=== PATIENT | female | born 1960 | race Caucasian/White ===

== ENCOUNTER 2021-02-28 17:30 | Emergency (ER) | payer MEDICAID ==
--- NOTE | 2021-02-28 17:53 | EDM.PDOC ---
<Chris Winston - Last Filed: 02/28/21 21:05> ED HPI GENERAL MEDICAL PROBLEM - General Stated Complaint: INFECTION ON BACK Time Seen by Provider: 02/28/21 17:35 - Related Data Allergies Allergy/AdvReac Type Severity Reaction Status Date / Time No Known Allergies Allergy Verified 02/28/21 17:56 Home Meds: Home Meds . [No Known Home Meds] 02/28/21 [History] Course - Re-Assessments/Exams Free Text/Narrative Re-Assessment/Exam: 02/28/21 19:30 Patient care was taken over at shift change. CT results with addendum were re viewed. The patient was advised of these results and the need for a surgical consult. [facility] in [place] was called for a surgical consult awaiting return call from surgery. 02/28/21 19:42 Consult was Surgeon with [facility] resulted in suggesting either the patient be started on antibiotics or be hospitalized with antibiotics. The patient would like to be started on IV antibiotics here and be discharged to home with oral antibiotics to follow-up with her primary care facility. Departure - Departure Time of Disposition: 21:05 Disposition: Home, Self-Care 01 Condition: Fair Clinical Impression: Abscess of skin and subcutaneous tissue Qualifiers: Site of cutaneous abscess: other site Qualified Code(s): L02.818 - Cutaneous abscess of other sites - Discharge Information *PRESCRIPTION DRUG MONITORING PROGRAM REVIEWED*: No *COPY OF PRESCRIPTION DRUG MONITORING REPORT IN PATIENT LISA: No Instructions: Skin Abscess, [id number] Forms: ED Department Discharge Care Plan Goals: The patient was advised of the examination and consult results with a surgeon from [facility]. The patient was given an IV dose of Vancomycin, IV fluids and IV insulin during the visit. The patient elected to be discharged to home with oral antibiotics to follow-up with her primary care facility early this week. The patient was discharged with a script for Keflex (500 mg) #30 to take 1 by mouth 3 times per day for 10 days and Bactrim DS #20 to take 1 by mouth 2 times per day for 10 days. If the patient has any additional symptoms or concerns, the patient should either return to the emergency department or visit her primary care facility. <Ashia Qureshi - Last Filed: 03/01/21 07:21> ED HPI GENERAL MEDICAL PROBLEM - General Source of Information: Reports: Patient, RN, RN Notes Reviewed History Limitations: Reports: No Limitations - History of Present Illness INITIAL COMMENTS - FREE TEXT/NARRATIVE: Jessie is a 60 y/o female who presents to the ED via personal vehicle with complaints of redness and swelling to a lesion on her back. The patient reports noting a lesion on her back about one week ago. The redness, swelling, pain, and size of the lesion have significantly increase since that time. She denies a history of MRSA. She denies fever, shaking chills, palpitations, nausea, vomiting, or diarrhea. She has been taking Tylenol, Motrin and drinking alcohol, which have offered her little to no alleviation of her symptoms. Right Back Pain Score (Numeric/FACES): 8 ED ROS GENERAL - Review of Systems Review Of Systems: Comprehensive ROS is negative, except as noted in HPI. ED EXAM, SKIN/RASH Exam: See Below Exam Limited By: No Limitations General Appearance: Alert, No Apparent Distress Eye Exam: Bilateral Eye: EOMI, Normal Inspection, PERRL (3mm) Ears: Normal External Exam, Normal Canal, Hearing Grossly Normal, Normal TMs Nose: Normal Inspection, Normal Mucosa, No Blood Throat/Mouth: Normal Inspection, Normal Oropharynx, Normal Voice, No Airway Compromise Head: Atraumatic, Normocephalic Neck: Normal Inspection, Supple, Non-Tender, Full Range of Motion Respiratory/Chest: No Respiratory Distress, Lungs Clear, Normal Breath Sounds, No Accessory Muscle Use, Chest Non-Tender Cardiovascular: Normal Peripheral Pulses, Regular Rate, Rhythm, No Edema, No Gallop, No JVD, No Murmur, No Rub, Tachycardia Peripheral Pulses: 2+: Radial (L), Radial (R) GI/Abdominal: Normal Bowel Sounds, Soft, Non-Tender, No Distention, No Mass, Pelvis Stable Back Exam: Other (Large area of erythema with multiple abscesses noted to midline spine) Extremities: Normal Inspection, Normal Range of Motion, Non-Tender, No Pedal Edema, Normal Capillary Refill Neurological: Alert, Oriented, CN II-XII Intact, Normal Cognition, Normal Gait, No Motor/Sensory Deficits Psychiatric: Normal Affect, Normal Mood Skin: Warm, Dry, Intact, Normal Color, No Rash, Erythema, Increased Warmth Location, Skin: Back Characteristics: Erythematous Associated features: Warmth, Tenderness, Inflammation Course - Vital Signs Last Recorded V/S: Last Vital Signs Temp 98.3 F 02/28/21 20:46 Pulse 93 02/28/21 20:46 Resp 16 02/28/21 20:46 BP 150/91 H 02/28/21 20:46 Pulse Ox 99 02/28/21 20:46 - Orders/Labs/Meds Orders: Active Orders 24 hr Category Date Time Status CULTURE BLOOD [BC] Stat Lab 02/28/21 17:53 Received Labs: Laboratory Tests 02/28/21 02/28/21 02/28/21 Range/Units 17:53 17:53 17:53 WBC 12.2 H (5.0-10.0) 10^3/uL RBC 4.70 (4.2-5.4) 10^6/uL Hgb 14.1 (12.0-16.0) g/dL Hct 41.4 (37.0-47.0) % MCV 88.1 (80-100) fL MCH 30.0 (27.0-34.0) pg MCHC 34.1 (33.0-35.0) g/dL Plt Count 219 (150-450) 10^3/uL Neut % (Auto) 69.9 (42.2-75.2) % Lymph % (Auto) 18.6 L (20.5-50.1) % Steele % (Auto) 9.9 H (2-8) % Eos % (Auto) 1.3 (1.0-3.0) % Baso % (Auto) 0.3 (0.0-1.0) % Sodium 130 L (136-145) mmol/L Potassium 4.8 (3.5-5.1) mmol/L Chloride 94 L (98-107) mmol/L Carbon Dioxide 27 (21-32) mmol/L Anion Gap 13.8 H (7-13) mEq/L BUN 7 (7-18) mg/dL Creatinine 0.72 (0.55-1.02) mg/dL Est Cr Clr Drug Dosing 66.54 mL/min Estimated GFR (MDRD) > 60 BUN/Creatinine Ratio 9.7 (No establ ref range) Glucose 458 H* (70-99) mg/dL POC Glucose (70-99) mg/dL Lactic Acid 3.3 H* (0.4-2.0) mmol/L Calcium 8.4 L (8.5-10.1) mg/dL Total Bilirubin 0.8 (0.2-1.0) mg/dL AST 84 H (15-37) U/L ALT 74 H (14-59) U/L Alkaline Phosphatase 284 H (46-116) U/L C-Reactive Protein 7.8 H (0.0-0.9) mg/dL Total Protein 7.8 (6.4-8.2) g/dL Albumin 2.3 L (3.4-5.0) g/dL Globulin 5.5 Albumin/Globulin Ratio 0.42 Ketones 02/28/21 02/28/21 02/28/21 Range/Units 17:53 19:45 21:25 WBC (5.0-10.0) 10^3/uL RBC (4.2-5.4) 10^6/uL Hgb (12.0-16.0) g/dL Hct (37.0-47.0) % MCV (80-100) fL MCH (27.0-34.0) pg MCHC (33.0-35.0) g/dL Plt Count (150-450) 10^3/uL Neut % (Auto) (42.2-75.2) % Lymph % (Auto) (20.5-50.1) % Steele % (Auto) (2-8) % Eos % (Auto) (1.0-3.0) % Baso % (Auto) (0.0-1.0) % Sodium (136-145) mmol/L Potassium (3.5-5.1) mmol/L Chloride (98-107) mmol/L Carbon Dioxide (21-32) mmol/L Anion Gap (7-13) mEq/L BUN (7-18) mg/dL Creatinine (0.55-1.02) mg/dL Est Cr Clr Drug Dosing mL/min Estimated GFR (MDRD) BUN/Creatinine Ratio (No establ ref range) Glucose (70-99) mg/dL POC Glucose 296 H (70-99) mg/dL Lactic Acid 1.0 (0.4-2.0) mmol/L Calcium (8.5-10.1) mg/dL Total Bilirubin (0.2-1.0) mg/dL AST (15-37) U/L ALT (14-59) U/L Alkaline Phosphatase (46-116) U/L C-Reactive Protein (0.0-0.9) mg/dL Total Protein (6.4-8.2) g/dL Albumin (3.4-5.0) g/dL Globulin Albumin/Globulin Ratio Ketones Negative 02/28/21 Range/Units 21:30 WBC (5.0-10.0) 10^3/uL RBC (4.2-5.4) 10^6/uL Hgb (12.0-16.0) g/dL Hct (37.0-47.0) % MCV (80-100) fL MCH (27.0-34.0) pg MCHC (33.0-35.0) g/dL Plt Count (150-450) 10^3/uL Neut % (Auto) (42.2-75.2) % Lymph % (Auto) (20.5-50.1) % Steele % (Auto) (2-8) % Eos % (Auto) (1.0-3.0) % Baso % (Auto) (0.0-1.0) % Sodium (136-145) mmol/L Potassium (3.5-5.1) mmol/L Chloride (98-107) mmol/L Carbon Dioxide (21-32) mmol/L Anion Gap (7-13) mEq/L BUN (7-18) mg/dL Creatinine (0.55-1.02) mg/dL Est Cr Clr Drug Dosing mL/min Estimated GFR (MDRD) BUN/Creatinine Ratio (No establ ref range) Glucose (70-99) mg/dL POC Glucose 257 H (70-99) mg/dL Lactic Acid (0.4-2.0) mmol/L Calcium (8.5-10.1) mg/dL Total Bilirubin (0.2-1.0) mg/dL AST (15-37) U/L ALT (14-59) U/L Alkaline Phosphatase (46-116) U/L C-Reactive Protein (0.0-0.9) mg/dL Total Protein (6.4-8.2) g/dL Albumin (3.4-5.0) g/dL Globulin Albumin/Globulin Ratio Ketones Meds: Medications Discontinued Medications Generic Name Dose Route Start Last Admin Trade Name Elizabeth PRN Reason Stop Dose Admin Dextrose/Water 50 ml 02/28/21 18:56 50% Dextrose In Water 50 Ml Syringe IVPUSH Q15M PRN Hypoglycemia Glucagon 1 mg 02/28/21 18:56 Glucagon,Human Recombinant 1 Mg Vial IM Q15M PRN Hypoglycemia Sodium Chloride 1,000 mls @ 999 mls/hr 02/28/21 18:53 02/28/21 19:07 Normal Saline IV 02/28/21 19:53 999 mls/hr .BOLUS ONE Administration Vancomycin HCl 1 gm/ Sodium 250 mls @ 167 mls/hr 02/28/21 19:40 02/28/21 19:47 Chloride IV 02/28/21 21:09 167 mls/hr ONETIME ONE Administration Insulin Human Regular 5 unit 02/28/21 18:56 02/28/21 19:09 Insulin Regular, Human 100 Units/Ml 3 Ml Vial IV 02/28/21 18:57 5 units ONETIME ONE Administration Iopamidol 100 ml 02/28/21 18:16 02/28/21 18:55 Iopamidol 612 Mg/Ml 100 Ml Bottle IVPUSH 02/28/21 18:17 100 ml ONETIME ONE Administration Ketorolac Tromethamine 30 mg 02/28/21 18:57 02/28/21 19:11 Ketorolac 30 Mg/Ml Sdv IVPUSH 02/28/21 18:58 30 mg ONETIME ONE Administration Lidocaine HCl 30 ml 02/28/21 18:53 02/28/21 19:41 Lidocaine 1% 30 Ml Sdv INJECT 02/28/21 18:54 Not Given ONETIME ONE - Re-Assessments/Exams Free Text/Narrative Re-Assessment/Exam: 02/28/21 Care of patient transferred to Jules Winston PA-C at 1900. Sepsis Event Note (ED) - Focused Exam Vital Signs: Vital Signs Temp Pulse Resp BP Pulse Ox 02/28/21 20:46 98.3 F 93 16 150/91 H 99 - My Orders Last 24 Hours: My Active Orders 02/28/21 17:53 CULTURE BLOOD [BC] Stat - Assessment/Plan Last 24 Hours: My Active Orders 02/28/21 17:53 CULTURE BLOOD [BC] Stat
[2021-02-28] MEDS ORDERED: Iopamidol 612 MG/ML 100 ML Bottle IVPUSH ONE (18:16)
[2021-02-28 18:33] LABS: ANION GAP 13.8 mEq/L (7-13); CHLORIDE,CL 94 mmol/L (98-107); SODIUM,NA 130 mmol/L (136-145)
[2021-02-28] MEDS ORDERED: Sodium Chloride 0.9% 1,000 ML IV ONE (18:53)
--- NOTE | 2021-02-28 18:54 | CT ---
PROCEDURE INFORMATION: Exam: CT Thoracic Spine With Contrast Exam date and time: 02/28/2021 6:15 PM Age: 60 years old Clinical indication: Other: R/O abscess involvement of spine; Additional info: Large abscess overlying thoracic spine--going past right scapula TECHNIQUE: Imaging protocol: Computed tomography images of the thoracic spine with intravenous contrast. Radiation optimization: All CT scans at this facility use at least one of these dose optimization techniques: automated exposure control; mA and/or kV adjustment per patient size (includes targeted exams where dose is matched to clinical indication); or iterative reconstruction. Contrast material: [id number]; Contrast volume: 100 ml; Contrast route: INTRAVENOUS (IV); COMPARISON: No relevant prior studies available. FINDINGS: Vertebrae: [id number] grade degenerative changes are present within the thoracic spine with disc space narrowing, endplate sclerosis and endplate osteophyte formation. Thoracic vertebral body height is well maintained. A moderate convex right thoracic scoliosis is present. Zuniga angle near 20 degrees. IMPRESSION: Degenerative change and moderate convex right thoracic scoliosis. No acute compression fracture or subluxation present.
[2021-02-28] MEDS ORDERED: Glucagon,Human Recombinant 1 MG Vial IM PRN (18:56)
[2021-02-28] MEDS ORDERED: Insulin Regular, Human 100 Units/ML 3 ML Vial IV ONE (18:56)
[2021-02-28] MEDS ORDERED: 50% Dextrose in Water 50 ML Syringe IVPUSH PRN (18:56)
[2021-02-28] MEDS ORDERED: Ketorolac 30 MG/ML SDV IVPUSH ONE (18:57)
[2021-02-28] MEDS: Lidocaine 1% 30 ML SDV INJECT ONE ×2 (19:13→19:41)
== END 2021-02-28 21:27 | disposition home or self-care (01) ==
LOC: EEVIPCON 17:30 → DL.ED 17:30
DX: L02.212 Cutaneous abscess of back [any part, except buttock and flank] (principal)
CPT/HCPCS: 36415; 72129; 80053; 82009; 82947; 83605; 85025; 86140; 87040; 87077; 87186; 96365; 96366; 96375; 99284; 99284-25; J1815-GY; J1885; J3370; J7030; J7050; Q9967

== ENCOUNTER 2021-08-04 18:15 | Emergency (ER) | payer MEDICAID | END 2021-08-04 22:21 | disposition left against medical advice (07) | LOC: DL.ED 18:15 | DX: Z53.21 Procedure and treatment not carried out due to patient leaving prior to being seen by health care provider (principal) ==

== ENCOUNTER 2021-08-09 15:51 | Inpatient (IN) | payer MEDICAID ==
[2021-08-09] MEDS ORDERED: Sodium Chloride 0.9% 10 ML Syringe FLUSH PRN ×2 (16:13→18:47)
--- NOTE | 2021-08-09 16:37 | CR ---
EXAMINATION: Chest 1V Frontal SEX: Female AGE: 61 years CLINICAL HISTORY: 61-year-old female smoker with ascites who is short of breath (SOB). No comparison films immediately available. Interpretation: Blunting of the costophrenic sulci and patchy lower lobe atelectasis reflecting poor inspiratory effort. Possible small dependent subpulmonic pleural effusion particularly on the right. Normal cardiac silhouette and size and configuration). No pulmonary vascular congestion, cephalization of flow or alveolar edema. No lung mass or hilar lymphadenopathy. Old healed fracture deformity lateral aspect right fifth rib. Dorsolumbar scoliosis. No alveolar infiltrate, air bronchograms or peripheral "groundglass" interstitial lung densities. CONCLUSION: Old trauma right chest and apparent small subpulmonic pleural effusions. No sign of heart failure lung mass or lobar infiltrate. No pneumothorax.
[2021-08-09 16:51] LABS: ANION GAP 10.1 mEq/L (7-13); CHLORIDE,CL 93 mmol/L (98-107); SODIUM,NA 124 mmol/L (136-145)
[2021-08-09 16:56] LABS: PTT,PARTIAL THROMBOPLSTIN TIME 27.5 SEC (22.0-34.0)
[2021-08-09] MEDS ORDERED: HYDROmorphone 1 MG/ML Syringe IVPUSH ONE (17:17)
[2021-08-09] MEDS ORDERED: Ondansetron 4 MG/2 ML SDV IV ONE (17:17)
--- NOTE | 2021-08-09 17:41 | EDM.PDOC ---
Scribed by Earnestine Melendrez 08/09/21 [id number] for Erik Flores MD ED HPI GENERAL MEDICAL PROBLEM - General Chief Complaint: Gastrointestinal Problem Stated Complaint: AMBULANCE Time Seen by Provider: 08/09/21 15:51 Source of Information: Reports: Patient, EMS, EMS Notes Reviewed, RN, RN Notes Reviewed History Limitations: Reports: No Limitations - History of Present Illness INITIAL COMMENTS - FREE TEXT/NARRATIVE: Pt arrives to ER by [facility] with c/o several months of abdomen progressively getting larger and larger, edema of the lower legs, shortness of breath, and jaundice. Pt reports being diagnosed with Hep C many years ago, but she never had any symptoms and did not follow up. Pt admits to drinks whisky & coke every day for the last 7 years. She smokes about 5 cigarettes daily. Admits nausea. Admits to 35lbs of unintended wt loss over the last 6 months. Denies fever, cough, chest pain, vomiting, bloody/black/melanotic stools. Onset: Gradual Duration: Other (Several months) Location: Reports: Abdomen, Generalized Quality: Reports: Ache Severity: Mild Improves with: Reports: None Worsens with: Reports: None Associated Symptoms: Reports: No Other Symptoms Generalized Pain Score (Numeric/FACES): 10 - Related Data Allergies Allergy/AdvReac Type Severity Reaction Status Date / Time No Known Allergies Allergy Verified 02/28/21 17:56 Home Meds: Home Meds . [No Known Home Meds] 02/28/21 [History] Past Medical History - Past Health History Medical/Surgical History: Denies Medical/Surgical History HEENT History: Reports: None Cardiovascular History: Reports: None Respiratory History: Reports: None Gastrointestinal History: Reports: Hepatitis (Hep C.) Genitourinary History: Reports: None [employer] History: Reports: None Musculoskeletal History: Reports: None Neurological History: Reports: None Psychiatric History: Reports: Addiction (Alcohol) Endocrine/Metabolic History: Reports: None Hematologic History: Reports: None Immunologic History: Reports: None Oncologic (Cancer) History: Reports: None Dermatologic History: Reports: None - Infectious Disease History Infectious Disease History: Reports: Hepatitis C - Past Surgical History Head Surgeries/Procedures: Reports: None Social & Family History - Family History Family Medical History: Unobtainable - Tobacco Use Tobacco Use Status *Q: Current Every Day Tobacco User Tobacco Use Within Last Twelve Months: Cigarettes - Caffeine Use Caffeine Use: Reports: Coffee - Alcohol Use Alcohol Use History: Yes Days Per Week of Alcohol Use: 7 (7 years of daily use.) Alcohol Use Frequency: Daily - Recreational Drug Use Recreational Drug Use: No - Living Situation & Occupation Living situation: Reports: with Significant Other ED ROS GENERAL - Review of Systems Review Of Systems: Comprehensive ROS is negative, except as noted in HPI. ED EXAM, GENERAL - Physical Exam Exam: See Below Exam Limited By: No Limitations General Appearance: Alert, No Apparent Distress, Other (Chronically ill appearing) Eye Exam: Bilateral Eye: EOMI, PERRL, Other (Scleral icterus) Nose: Normal Inspection, No Blood Throat/Mouth: Normal Lips, Normal Voice, No Airway Compromise, Other (Very dry oral mucosa) Head: Atraumatic, Normocephalic Neck: Normal Inspection, Supple, Non-Tender, Full Range of Motion. No: Lymphadenopathy (L), Lymphadenopathy (R) Respiratory/Chest: No Respiratory Distress, Lungs Clear, No Accessory Muscle Use, Decreased Breath Sounds Cardiovascular: Regular Rate, Rhythm, Other (+2 pitting edema to knees B/L) GI/Abdominal: Tender (Mild diffuse tenderness), Other (Protruberant abdomen with large ascites, +fluid wave). No: Guarding, Rigid, Rebound (Female) Exam: Deferred Rectal (Female) Exam: Deferred Back Exam: Normal Inspection Extremities: Normal Range of Motion, Pedal Edema. No: Increased Warmth, Redness Neurological: Alert, Oriented, CN II-XII Intact, Normal Cognition, No Motor/Sensory Deficits Psychiatric: Anxious Skin Exam: Warm, Dry, Jaundice Course - Vital Signs Last Recorded V/S: Last Vital Signs Temp 98.1 F 08/09/21 16:13 Pulse 108 H 08/09/21 16:13 Resp 32 H 08/09/21 16:13 BP 150/93 H 08/09/21 16:13 Pulse Ox 95 08/09/21 16:13 - Orders/Labs/Meds Orders: Active Orders 24 hr Category Date Time Status Peripheral IV Care [RC] . DIRECTED Care 08/09/21 16:13 Active DRUG SCREEN URINE BIORAD [URCHEM] Stat Lab 08/09/21 16:12 Ordered UA RFX RADHA AND CULT IF INDIC [URIN] Stat Lab 08/09/21 16:12 Ordered Sodium Chloride 0.9% [Saline Flush] Med 08/09/21 16:13 Active 10 ml FLUSH ASDIRECTED PRN Peripheral IV Insertion Adult [OM.PC] Stat Oth 08/09/21 16:12 Ordered Medication Orders Sodium Chloride (Sodium Chloride 0.9% 10 Ml Syringe) 10 ml FLUSH ASDIRECTED PRN PRN Reason: Keep Vein Open Last Admin: 08/09/21 17:35 Dose: 10 ml Documented by: ARAMIS Labs: Laboratory Tests 08/09/21 08/09/21 08/09/21 Range/Units 15:54 16:09 16:09 WBC 10.3 H (5.0-10.0) 10^3/uL RBC 3.86 L (4.2-5.4) 10^6/uL Hgb 12.0 D (12.0-16.0) g/dL Hct 34.3 L (37.0-47.0) % MCV 88.9 (80-100) fL MCH 31.1 (27.0-34.0) pg MCHC 35.0 (33.0-35.0) g/dL Plt Count 241 (150-450) 10^3/uL Neut % (Auto) 81.9 H (42.2-75.2) % Lymph % (Auto) 9.5 L (20.5-50.1) % Warrick % (Auto) 6.8 (2-8) % Eos % (Auto) 1.5 (1.0-3.0) % Baso % (Auto) 0.3 (0.0-1.0) % Add Manual Diff Yes Neutrophils % (Manual) 73 (42-75) % Band Neutrophils % 8 % Lymphocytes % (Manual) 15 L (20-50) % Monocytes % (Manual) 4 (2-8) % PT (9.0-12.0) SEC INR (0.9-1.2) APTT (22.0-34.0) SEC Sodium 124 L (136-145) mmol/L Potassium 5.1 (3.5-5.1) mmol/L Chloride 93 L (98-107) mmol/L Carbon Dioxide 26 (21-32) mmol/L Anion Gap 10.1 (7-13) mEq/L BUN 18 (7-18) mg/dL Creatinine 0.75 (0.55-1.02) mg/dL Est Cr Clr Drug Dosing 63.09 mL/min Estimated GFR (MDRD) > 60 BUN/Creatinine Ratio 24.0 (No establ ref range) Glucose 219 H (70-99) mg/dL Lactic Acid (0.4-2.0) mmol/L Calcium 7.8 L (8.5-10.1) mg/dL Total Bilirubin 9.8 H (0.2-1.0) mg/dL AST 380 H (15-37) U/L ALT 315 H (14-59) U/L Alkaline Phosphatase 764 H (46-116) U/L Ammonia (11-32) umol/L Lactate Dehydrogenase 367 H (81-234) U/L Troponin I High Sens 6 (<=51) pg/mL B-Natriuretic Peptide 70 (0-100) pg/ml Total Protein 7.8 (6.4-8.2) g/dL Albumin 0.9 L (3.4-5.0) g/dL Globulin 6.9 Albumin/Globulin Ratio 0.13 Amylase 30 (25-115) U/L Lipase 171 (73-393) U/L Ethyl Alcohol < 3 (0) mg/dL SARS-CoV-2 RNA (RODNEY) Negative (NEGATIVE) 08/09/21 08/09/21 08/09/21 Range/Units 16:09 16:09 16:09 WBC (5.0-10.0) 10^3/uL RBC (4.2-5.4) 10^6/uL Hgb (12.0-16.0) g/dL Hct (37.0-47.0) % MCV (80-100) fL MCH (27.0-34.0) pg MCHC (33.0-35.0) g/dL Plt Count (150-450) 10^3/uL Neut % (Auto) (42.2-75.2) % Lymph % (Auto) (20.5-50.1) % Warrick % (Auto) (2-8) % Eos % (Auto) (1.0-3.0) % Baso % (Auto) (0.0-1.0) % Add Manual Diff Neutrophils % (Manual) (42-75) % Band Neutrophils % % Lymphocytes % (Manual) (20-50) % Monocytes % (Manual) (2-8) % PT 15.9 H (9.0-12.0) SEC INR 1.6 H (0.9-1.2) APTT 27.5 (22.0-34.0) SEC Sodium (136-145) mmol/L Potassium (3.5-5.1) mmol/L Chloride (98-107) mmol/L Carbon Dioxide (21-32) mmol/L Anion Gap (7-13) mEq/L BUN (7-18) mg/dL Creatinine (0.55-1.02) mg/dL Est Cr Clr Drug Dosing mL/min Estimated GFR (MDRD) BUN/Creatinine Ratio (No establ ref range) Glucose (70-99) mg/dL Lactic Acid 1.7 (0.4-2.0) mmol/L Calcium (8.5-10.1) mg/dL Total Bilirubin (0.2-1.0) mg/dL AST (15-37) U/L ALT (14-59) U/L Alkaline Phosphatase (46-116) U/L Ammonia 62 H (11-32) umol/L Lactate Dehydrogenase (81-234) U/L Troponin I High Sens (<=51) pg/mL B-Natriuretic Peptide (0-100) pg/ml Total Protein (6.4-8.2) g/dL Albumin (3.4-5.0) g/dL Globulin Albumin/Globulin Ratio Amylase (25-115) U/L Lipase (73-393) U/L Ethyl Alcohol (0) mg/dL SARS-CoV-2 RNA (RODNEY) (NEGATIVE) Meds: Medications Generic Name Dose Route Start Last Admin Trade Name Freman PRN Reason Stop Dose Admin Sodium Chloride 10 ml 08/09/21 16:13 08/09/21 17:35 Sodium Chloride 0.9% 10 Ml Syringe FLUSH 10 ml ASDIRECTED PRN Administration Keep Vein Open Discontinued Medications Generic Name Dose Route Start Last Admin Trade Name Freq PRN Reason Stop Dose Admin Hydromorphone HCl 1 mg 08/09/21 17:17 08/09/21 17:35 Hydromorphone 1 Mg/Ml Syringe IVPUSH 08/09/21 17:18 1 mg ONETIME ONE Administration Ondansetron HCl 4 mg 08/09/21 17:17 08/09/21 17:34 Ondansetron 4 Mg/2 Ml Sdv IV 08/09/21 17:18 4 mg ONETIME ONE Administration - Radiology Interpretation Free Text/Narrative:: XR Chest: old trauma Rt chest, small subpulmonic pleural effusion per Rad. report. - Re-Assessments/Exams Free Text/Narrative Re-Assessment/Exam: 08/09/21 17:38 No beds available state wide to transfer the pt to. Pt does not meet transplant criteria at this time. Pt to be admitted here to Dr. Chamberlain, and is on transfer waiting list with [facility]. Departure - Departure Time of Disposition: 17:39 (admit to Dr. Chamberlain) Disposition: Admitted As Inpatient 67 Condition: Serious Clinical Impression: Alcoholic liver disease, Ascites due to alcoholic hepatitis, History of hepatitis C Liver failure Qualifiers: Liver failure chronicity: chronic Hepatic coma status: without hepatic coma Qualified Code(s): K72.10 - Chronic hepatic failure without coma - Discharge Information *PRESCRIPTION DRUG MONITORING PROGRAM REVIEWED*: Not Applicable *COPY OF PRESCRIPTION DRUG MONITORING REPORT IN PATIENT LISA: Not Applicable Forms: ED Department Discharge Sepsis Event Note (ED) - Focused Exam Vital Signs: Vital Signs Temp Pulse Resp BP Pulse Ox 08/09/21 16:13 98.1 F 108 H 32 H 150/93 H 95 - My Orders Last 24 Hours: My Active Orders 08/09/21 16:12 DRUG SCREEN URINE BIORAD [URCHEM] Stat UA RFX RADHA AND CULT IF INDIC [URIN] Stat Peripheral IV Insertion Adult [OM.PC] Stat 08/09/21 16:13 Peripheral IV Care [RC] . DIRECTED Sodium Chloride 0.9% [Saline Flush] 10 ml FLUSH ASDIRECTED PRN - Assessment/Plan Last 24 Hours: My Active Orders 08/09/21 16:12 DRUG SCREEN URINE BIORAD [URCHEM] Stat UA RFX RADHA AND CULT IF INDIC [URIN] Stat Peripheral IV Insertion Adult [OM.PC] Stat 08/09/21 16:13 Peripheral IV Care [RC] . DIRECTED Sodium Chloride 0.9% [Saline Flush] 10 ml FLUSH ASDIRECTED PRN I have read and agree with the documentation that has been completed regarding this visit. By signing this record, I attest that the documentation was completed in my physical presence and is an accurate record of the encounter.
[2021-08-09] MEDS ORDERED: Ondansetron 4 MG Tab.DIS PO PRN (18:47)
--- NOTE | 2021-08-09 18:51 | PCM.HP ---
H&P History of Present Illness - General Date of Service: 08/09/21 Admit Problem/Dx: Admission Diagnosis/Problem Admission Diagnosis/Problem Hepatic failure Source of Information: Patient, Provider Generalized Pain Score (Numeric/FACES): 10 - Related Data Allergies/Adverse Reactions: Allergies Allergy/AdvReac Type Severity Reaction Status Date / Time No Known Allergies Allergy Verified 02/28/21 17:56 Home Medications: Home Meds . [No Known Home Meds] 02/28/21 [History] Past Medical History - Past Health History Medical/Surgical History: Denies Medical/Surgical History HEENT History: Reports: None Cardiovascular History: Reports: None Respiratory History: Reports: None Gastrointestinal History: Reports: Hepatitis, Other (See Below) (chronic hep C) Genitourinary History: Reports: None [employer] History: Reports: None Musculoskeletal History: Reports: None Neurological History: Reports: None Psychiatric History: Reports: None Endocrine/Metabolic History: Reports: None Hematologic History: Reports: None Immunologic History: Reports: None Oncologic (Cancer) History: Reports: None Dermatologic History: Reports: None - Infectious Disease History Infectious Disease History: Reports: None - Past Surgical History Head Surgeries/Procedures: Reports: None Social & Family History - Family History Family Medical History: No Pertinent Family History - Tobacco Use Tobacco Use Status *Q: Current Every Day Tobacco User Years of Tobacco use: 50 Packs/Tins Daily: 1 - Caffeine Use Caffeine Use: Reports: Coffee - Alcohol Use Alcohol Use History: Yes Days Per Week of Alcohol Use: 7 Date of Last Drink: 08/08/21 Time of Last Drink: 08:00 Alcohol Use in Last Twelve Months: Yes Alcohol Use Frequency: Binges (daily binges for 7 years) Desires Substance Cessation Medication: Yes - Recreational Drug Use Recreational Drug Use: Yes Recreational Drug Type: Reports: Marijuana/Hashish H&P Review of Systems - Review of Systems: Review Of Systems: See Below General: Reports: Malaise, Weakness, Decreased Appetite, Weight Gain. Denies: Fever, Chills HEENT: Reports: Other (yellow eyes) Pulmonary: Reports: No Symptoms. Denies: Shortness of Breath, Wheezing, Cough Cardiovascular: Reports: Dyspnea on Exertion. Denies: Chest Pain, Palpitations, Lightheadedness Gastrointestinal: Reports: Distension. Denies: Constipation, Diarrhea Genitourinary: Reports: No Symptoms Musculoskeletal: Reports: No Symptoms Skin: Reports: Jaundice, Bruising Psychiatric: Reports: No Symptoms Neurological: Reports: No Symptoms Hematologic/Lymphatic: Reports: Easy Bruising Immunologic: Reports: No Symptoms Exam - Exam Exam: See Below - Vital Signs Vital Signs: Last Vital Signs Temp 98.1 F 08/09/21 16:13 Pulse 108 H 08/09/21 16:13 Resp 32 H 08/09/21 16:13 BP 150/93 H 08/09/21 16:13 Pulse Ox 95 08/09/21 16:13 Weight: 147 lb - Exam Quality Assessment: DVT Prophylaxis. No: Supplemental Oxygen, Skin Breakdown General: Alert, Oriented, Cooperative, Mild Distress HEENT: EOMI, Pupils Equal, Scleral Icterus Neck: Supple, JVD Lungs: Clear to Auscultation, Normal Respiratory Effort, Decreased Breath Sounds (right base). No: Crackles, Rales, Rhonchi, Rub, Wheezing Cardiovascular: Regular Rate, Regular Rhythm, Normal S1, Normal S2. No: Systolic Murmur, Diastolic Murmur GI/Abdominal Exam: Distended, Other (positive fluid wave) (Female) Exam: Deferred Rectal (Female) Exam: Deferred Back Exam: Normal Inspection, Full Range of Motion Extremities: Normal Range of Motion, Pedal Edema (3+ to the level of the knee bilaterally) Skin: Warm, Dry, Other (diffuse jaundice) Neuro Extensive - Mental Status: Alert, Oriented x3, Normal Cognition Psychiatric: Alert, Other (tearful) - Patient Data Lab Results Last 24 hrs: Laboratory Results - last 24 hr 08/09/21 08/09/21 08/09/21 Range/Units 15:54 16:09 16:09 WBC 10.3 H (5.0-10.0) 10^3/uL RBC 3.86 L (4.2-5.4) 10^6/uL Hgb 12.0 D (12.0-16.0) g/dL Hct 34.3 L (37.0-47.0) % MCV 88.9 (80-100) fL MCH 31.1 (27.0-34.0) pg MCHC 35.0 (33.0-35.0) g/dL Plt Count 241 (150-450) 10^3/uL Neut % (Auto) 81.9 H (42.2-75.2) % Lymph % (Auto) 9.5 L (20.5-50.1) % [place] % (Auto) 6.8 (2-8) % Eos % (Auto) 1.5 (1.0-3.0) % Baso % (Auto) 0.3 (0.0-1.0) % Add Manual Diff Yes Neutrophils % (Manual) 82 H (42-75) % Band Neutrophils % 5 % Lymphocytes % (Manual) 9 L (20-50) % Monocytes % (Manual) 3 (2-8) % Eosinophils % (Manual) 1 (1-3) % Target Cells 2+ moderate PT (9.0-12.0) SEC INR (0.9-1.2) APTT (22.0-34.0) SEC Sodium 124 L (136-145) mmol/L Potassium 5.1 (3.5-5.1) mmol/L Chloride 93 L (98-107) mmol/L Carbon Dioxide 26 (21-32) mmol/L Anion Gap 10.1 (7-13) mEq/L BUN 18 (7-18) mg/dL Creatinine 0.75 (0.55-1.02) mg/dL Est Cr Clr Drug Dosing 63.09 mL/min Estimated GFR (MDRD) > 60 BUN/Creatinine Ratio 24.0 (No establ ref range) Glucose 219 H (70-99) mg/dL Lactic Acid (0.4-2.0) mmol/L Calcium 7.8 L (8.5-10.1) mg/dL Total Bilirubin 9.8 H (0.2-1.0) mg/dL AST 380 H (15-37) U/L ALT 315 H (14-59) U/L Alkaline Phosphatase 764 H (46-116) U/L Ammonia (11-32) umol/L Lactate Dehydrogenase 367 H (81-234) U/L Troponin I High Sens 6 (<=51) pg/mL B-Natriuretic Peptide 70 (0-100) pg/ml Total Protein 7.8 (6.4-8.2) g/dL Albumin 0.9 L (3.4-5.0) g/dL Globulin 6.9 Albumin/Globulin Ratio 0.13 Amylase 30 (25-115) U/L Lipase 171 (73-393) U/L Ethyl Alcohol < 3 (0) mg/dL SARS-CoV-2 RNA (RODNEY) Negative (NEGATIVE) 08/09/21 08/09/21 08/09/21 Range/Units 16:09 16:09 16:09 WBC (5.0-10.0) 10^3/uL RBC (4.2-5.4) 10^6/uL Hgb (12.0-16.0) g/dL Hct (37.0-47.0) % MCV (80-100) fL MCH (27.0-34.0) pg MCHC (33.0-35.0) g/dL Plt Count (150-450) 10^3/uL Neut % (Auto) (42.2-75.2) % Lymph % (Auto) (20.5-50.1) % [place] % (Auto) (2-8) % Eos % (Auto) (1.0-3.0) % Baso % (Auto) (0.0-1.0) % Add Manual Diff Neutrophils % (Manual) (42-75) % Band Neutrophils % % Lymphocytes % (Manual) (20-50) % Monocytes % (Manual) (2-8) % Eosinophils % (Manual) (1-3) % Target Cells PT 15.9 H (9.0-12.0) SEC INR 1.6 H (0.9-1.2) APTT 27.5 (22.0-34.0) SEC Sodium (136-145) mmol/L Potassium (3.5-5.1) mmol/L Chloride (98-107) mmol/L Carbon Dioxide (21-32) mmol/L Anion Gap (7-13) mEq/L BUN (7-18) mg/dL Creatinine (0.55-1.02) mg/dL Est Cr Clr Drug Dosing mL/min Estimated GFR (MDRD) BUN/Creatinine Ratio (No establ ref range) Glucose (70-99) mg/dL Lactic Acid 1.7 (0.4-2.0) mmol/L Calcium (8.5-10.1) mg/dL Total Bilirubin (0.2-1.0) mg/dL AST (15-37) U/L ALT (14-59) U/L Alkaline Phosphatase (46-116) U/L Ammonia 62 H (11-32) umol/L Lactate Dehydrogenase (81-234) U/L Troponin I High Sens (<=51) pg/mL B-Natriuretic Peptide (0-100) pg/ml Total Protein (6.4-8.2) g/dL Albumin (3.4-5.0) g/dL Globulin Albumin/Globulin Ratio Amylase (25-115) U/L Lipase (73-393) U/L Ethyl Alcohol (0) mg/dL SARS-CoV-2 RNA (RODNEY) (NEGATIVE) Result Diagrams: 08/09/21 16:09 08/09/21 16:09 Problem List Initiated/Reviewed/Updated: Yes Orders Last 24hrs: Active Orders 24 hr Category Date Time Status Admission Diagnosis [ADT] Stat ADT 08/09/21 17:43 Ordered Admission Status [Patient Status] [ADT] Routine ADT 08/09/21 17:43 Active Antiembolic Devices [RC] PER UNIT ROUTINE Care 08/09/21 18:48 Ordered Height and Weight [RC] DAILY Care 08/09/21 18:47 Ordered Intake and Output [RC] QSHIFT Care 08/09/21 18:48 Ordered Oxygen Therapy [RC] PRN Care 08/09/21 18:47 Ordered Pulse Oximetry [RC] PRN Care 08/09/21 18:48 Ordered Up With Assistance [RC] ASDIRECTED Care 08/09/21 18:47 Ordered VTE/DVT Education [RC] PER UNIT ROUTINE Care 08/09/21 18:47 Ordered Vital Signs [RC] Q4H Care 08/09/21 18:47 Ordered Heart Healthy Diet [DIET] Diet 08/09/21 Breakfast Ordered CBC W/O DIFF,HEMOGRAM [HEME] AM Lab 08/10/21 05:11 Ordered COMPREHENSIVE METABOLIC PN,CMP [CHEM] AM Lab 08/10/21 05:11 Ordered DRUG SCREEN URINE BIORAD [URCHEM] Stat Lab 08/09/21 16:12 Ordered UA RFX RADHA AND CULT IF INDIC [URIN] Stat Lab 08/09/21 16:12 Ordered Ibuprofen [Motrin] Med 08/09/21 18:47 Ordered 400 mg PO Q6H PRN Ondansetron [Zofran ODT] Med 08/09/21 18:47 Ordered 4 mg PO Q6H PRN Sodium Chloride 0.9% [Saline Flush] Med 08/09/21 16:13 Active 10 ml FLUSH ASDIRECTED PRN Sodium Chloride 0.9% [Saline Flush] Med 08/09/21 18:47 Ordered 10 ml FLUSH ASDIRECTED PRN Antiembolic Hose [OM.PC] Per Unit Routine Oth 08/09/21 18:48 Ordered Peripheral IV Insertion Adult [OM.PC] Stat Oth 08/09/21 16:12 Ordered Saline Lock Insert [OM.PC] Routine Oth 08/09/21 18:47 Ordered Resuscitation Status Routine Resus Stat 08/09/21 18:47 Ordered Medication Orders Sodium Chloride (Sodium Chloride 0.9% 10 Ml Syringe) 10 ml FLUSH ASDIRECTED PRN PRN Reason: Keep Vein Open Last Admin: 08/09/21 17:35 Dose: 10 ml Documented by: ARAMIS Assessment/Plan Comment:: Acute decompensated hepatic failure Hx of hep C without coma anasarca: severe protein calorie malnutrition hypoalbuminemia - MELDNa 28 ( creatinine 0.75, tbili 9.8, INR 1.6, Na 124; conveys 27-32% 90-day mortality) - pt does not qualify for transplant as last drink of alcohol was yesterday - albumin 0.9 - pt on list for transfer to [facility] when a bed is available. will benefit from GI evaluation, possible steroid candidate, referral to transplant center for initial eval vs hospice. Plan: - I/O, daily weights. 2g Na daily with 1.5L fluid restrict - ibuprofen for pain control CHRONIC CONDITIONS: - nicotine dependence, cigarettes, uncomplicated: nicotine replacement per protocol. smoking cessation counseling provided for 3-10 minutes - THC abuse
[2021-08-10 06:57] LABS: ANION GAP 9.7 mEq/L (7-13); CHLORIDE,CL 94 mmol/L (98-107); SODIUM,NA 127 mmol/L (136-145)
[2021-08-10] MEDS: Nicotine 21 MG/24 Hr Patch TRDERM SCH ×2 (08:45→11:29)
[2021-08-10] MEDS: Ibuprofen 400 MG Tab PO PRN ×3 (08:49→19:44)
[2021-08-10 09:28] LABS: AMPHETAMINES,URINE NEGATIVE (NEGATIVE); BARBITURATES,URINE NEGATIVE (NEGATIVE); BENZODIAZEPINE,URINE NEGATIVE (NEGATIVE); MDMA (ECSTASY), URINE NEGATIVE (NEGATIVE); METHADONE,URINE NEGATIVE (NEGATIVE); METHAMPHETAMINES,URINE POSITIVE (NEGATIVE); OPIATES,URINE NEGATIVE (NEGATIVE); OXYCODONE,URINE NEGATIVE (NEGATIVE); PHENCYCLIDINE,URINE NEGATIVE (NEGATIVE); TCA,URINE NEGATIVE (NEGATIVE)
--- NOTE | 2021-08-10 15:28 | PCM.PN ---
- General Info Date of Service: 08/10/21 Admission Dx/Problem (Free Text): Admission Diagnosis/Problem Admission Diagnosis/Problem Hepatic failure Subjective Update: pt tearful today. increased fluid in abdomen causing some pain and difficulty breathing. no oxygen requirement. absolutely set that she will survive to transplant- very hopeful but also realistic. excited to go live with her daughter, who will be here monday to pick her up. ok with going on hospice today. - Review of Systems General: Reports: Weakness, Fatigue. Denies: Chills HEENT: Reports: No Symptoms Pulmonary: Reports: Shortness of Breath. Denies: Cough, Sputum, Hemoptysis, Wheezing Cardiovascular: Reports: Dyspnea on Exertion, Edema Gastrointestinal: Reports: Abdominal Pain, Decreased Appetite. Denies: Diarrhea, Difficulty Swallowing, Nausea, Vomiting Genitourinary: Reports: No Symptoms Musculoskeletal: Reports: No Symptoms Skin: Reports: Jaundice, Bruising Neurological: Reports: Weakness Psychiatric: Reports: Anxiety - Patient Data Vitals - Most Recent: Last Vital Signs Temp 98.3 F 08/10/21 12:52 Pulse 96 08/10/21 12:52 Resp 20 08/10/21 12:52 BP 121/78 08/10/21 12:52 Pulse Ox 94 L 08/10/21 12:52 Weight - Most Recent: 137 lb Lab Results Last 24 Hours: Laboratory Results - last 24 hr 08/09/21 08/09/21 08/09/21 Range/Units 15:54 16:09 16:09 WBC 10.3 H (5.0-10.0) 10^3/uL RBC 3.86 L (4.2-5.4) 10^6/uL Hgb 12.0 D (12.0-16.0) g/dL Hct 34.3 L (37.0-47.0) % MCV 88.9 (80-100) fL MCH 31.1 (27.0-34.0) pg MCHC 35.0 (33.0-35.0) g/dL Plt Count 241 (150-450) 10^3/uL Neut % (Auto) 81.9 H (42.2-75.2) % Lymph % (Auto) 9.5 L (20.5-50.1) % Taylor % (Auto) 6.8 (2-8) % Eos % (Auto) 1.5 (1.0-3.0) % Baso % (Auto) 0.3 (0.0-1.0) % Add Manual Diff Yes Neutrophils % (Manual) 82 H (42-75) % Band Neutrophils % 5 % Lymphocytes % (Manual) 9 L (20-50) % Monocytes % (Manual) 3 (2-8) % Eosinophils % (Manual) 1 (1-3) % Target Cells 2+ moderate PT (9.0-12.0) SEC INR (0.9-1.2) APTT (22.0-34.0) SEC Sodium 124 L (136-145) mmol/L Potassium 5.1 (3.5-5.1) mmol/L Chloride 93 L (98-107) mmol/L Carbon Dioxide 26 (21-32) mmol/L Anion Gap 10.1 (7-13) mEq/L BUN 18 (7-18) mg/dL Creatinine 0.75 (0.55-1.02) mg/dL Est Cr Clr Drug Dosing 63.09 mL/min Estimated GFR (MDRD) > 60 BUN/Creatinine Ratio 24.0 (No establ ref range) Glucose 219 H (70-99) mg/dL Lactic Acid (0.4-2.0) mmol/L Calcium 7.8 L (8.5-10.1) mg/dL Total Bilirubin 9.8 H (0.2-1.0) mg/dL AST 380 H (15-37) U/L ALT 315 H (14-59) U/L Alkaline Phosphatase 764 H (46-116) U/L Ammonia (11-32) umol/L Lactate Dehydrogenase 367 H (81-234) U/L Troponin I High Sens 6 (<=51) pg/mL B-Natriuretic Peptide 70 (0-100) pg/ml Total Protein 7.8 (6.4-8.2) g/dL Albumin 0.9 L (3.4-5.0) g/dL Globulin 6.9 Albumin/Globulin Ratio 0.13 Amylase 30 (25-115) U/L Lipase 171 (73-393) U/L Urine Color (YELLOW) Urine Appearance (CLEAR) Urine pH (5.0-9.0) Ur Specific [place] (1.005-1.030) Urine Protein (NEGATIVE) Urine Glucose (UA) (NEGATIVE) Urine Ketones (NEGATIVE) Urine Occult Blood (NEGATIVE) Urine Nitrite (NEGATIVE) Urine Bilirubin (NEGATIVE) Urine Urobilinogen (0.2-1.0) mg/dL Ur Leukocyte Esterase (NEGATIVE) Urine RBC (0-5) /HPF Urine WBC (0-5/HPF) /HPF Ur Epithelial Cells (NOT SEEN) /HPF Urine Bacteria (0-FEW/HPF) /HPF Urine Mucus (NOT SEEN) /LPF Urine Opiates Screen (NEGATIVE) Ur Oxycodone Screen (NEGATIVE) Urine Methadone Screen (NEGATIVE) Ur Barbiturates Screen (NEGATIVE) U Tricyclic Antidepress (NEGATIVE) Ur Phencyclidine Scrn (NEGATIVE) Ur Amphetamine Screen (NEGATIVE) U Methamphetamines Scrn (NEGATIVE) Urine MDMA Screen (NEGATIVE) U Benzodiazepines Scrn (NEGATIVE) Urine Cocaine Screen (NEGATIVE) U Marijuana (THC) Screen (NEGATIVE) Ethyl Alcohol < 3 (0) mg/dL SARS-CoV-2 RNA ([place]) Negative (NEGATIVE) 08/09/21 08/09/21 08/09/21 Range/Units 16:09 16:09 16:09 WBC (5.0-10.0) 10^3/uL RBC (4.2-5.4) 10^6/uL Hgb (12.0-16.0) g/dL Hct (37.0-47.0) % MCV (80-100) fL MCH (27.0-34.0) pg MCHC (33.0-35.0) g/dL Plt Count (150-450) 10^3/uL Neut % (Auto) (42.2-75.2) % Lymph % (Auto) (20.5-50.1) % Taylor % (Auto) (2-8) % Eos % (Auto) (1.0-3.0) % Baso % (Auto) (0.0-1.0) % Add Manual Diff Neutrophils % (Manual) (42-75) % Band Neutrophils % % Lymphocytes % (Manual) (20-50) % Monocytes % (Manual) (2-8) % Eosinophils % (Manual) (1-3) % Target Cells PT 15.9 H (9.0-12.0) SEC INR 1.6 H (0.9-1.2) APTT 27.5 (22.0-34.0) SEC Sodium (136-145) mmol/L Potassium (3.5-5.1) mmol/L Chloride (98-107) mmol/L Carbon Dioxide (21-32) mmol/L Anion Gap (7-13) mEq/L BUN (7-18) mg/dL Creatinine (0.55-1.02) mg/dL Est Cr Clr Drug Dosing mL/min Estimated GFR (MDRD) BUN/Creatinine Ratio (No establ ref range) Glucose (70-99) mg/dL Lactic Acid 1.7 (0.4-2.0) mmol/L Calcium (8.5-10.1) mg/dL Total Bilirubin (0.2-1.0) mg/dL AST (15-37) U/L ALT (14-59) U/L Alkaline Phosphatase (46-116) U/L Ammonia 62 H (11-32) umol/L Lactate Dehydrogenase (81-234) U/L Troponin I High Sens (<=51) pg/mL B-Natriuretic Peptide (0-100) pg/ml Total Protein (6.4-8.2) g/dL Albumin (3.4-5.0) g/dL Globulin Albumin/Globulin Ratio Amylase (25-115) U/L Lipase (73-393) U/L Urine Color (YELLOW) Urine Appearance (CLEAR) Urine pH (5.0-9.0) Ur Specific [place] (1.005-1.030) Urine Protein (NEGATIVE) Urine Glucose (UA) (NEGATIVE) Urine Ketones (NEGATIVE) Urine Occult Blood (NEGATIVE) Urine Nitrite (NEGATIVE) Urine Bilirubin (NEGATIVE) Urine Urobilinogen (0.2-1.0) mg/dL Ur Leukocyte Esterase (NEGATIVE) Urine RBC (0-5) /HPF Urine WBC (0-5/HPF) /HPF Ur Epithelial Cells (NOT SEEN) /HPF Urine Bacteria (0-FEW/HPF) /HPF Urine Mucus (NOT SEEN) /LPF Urine Opiates Screen (NEGATIVE) Ur Oxycodone Screen (NEGATIVE) Urine Methadone Screen (NEGATIVE) Ur Barbiturates Screen (NEGATIVE) U Tricyclic Antidepress (NEGATIVE) Ur Phencyclidine Scrn (NEGATIVE) Ur Amphetamine Screen (NEGATIVE) U Methamphetamines Scrn (NEGATIVE) Urine MDMA Screen (NEGATIVE) U Benzodiazepines Scrn (NEGATIVE) Urine Cocaine Screen (NEGATIVE) U Marijuana (THC) Screen (NEGATIVE) Ethyl Alcohol (0) mg/dL SARS-CoV-2 RNA ([place]) (NEGATIVE) 08/10/21 08/10/21 08/10/21 Range/Units 06:28 06:28 09:00 WBC 9.7 (5.0-10.0) 10^3/uL RBC 4.03 L (4.2-5.4) 10^6/uL Hgb 12.6 (12.0-16.0) g/dL Hct 36.7 L (37.0-47.0) % MCV 91.1 (80-100) fL MCH 31.3 (27.0-34.0) pg MCHC 34.3 (33.0-35.0) g/dL Plt Count 226 (150-450) 10^3/uL Neut % (Auto) (42.2-75.2) % Lymph % (Auto) (20.5-50.1) % Taylor % (Auto) (2-8) % Eos % (Auto) (1.0-3.0) % Baso % (Auto) (0.0-1.0) % Add Manual Diff Neutrophils % (Manual) (42-75) % Band Neutrophils % % Lymphocytes % (Manual) (20-50) % Monocytes % (Manual) (2-8) % Eosinophils % (Manual) (1-3) % Target Cells PT (9.0-12.0) SEC INR (0.9-1.2) APTT (22.0-34.0) SEC Sodium 127 L (136-145) mmol/L Potassium 4.7 (3.5-5.1) mmol/L Chloride 94 L (98-107) mmol/L Carbon Dioxide 28 (21-32) mmol/L Anion Gap 9.7 (7-13) mEq/L BUN 17 (7-18) mg/dL Creatinine 0.82 (0.55-1.02) mg/dL Est Cr Clr Drug Dosing 57.70 mL/min Estimated GFR (MDRD) > 60 BUN/Creatinine Ratio 20.7 (No establ ref range) Glucose 156 H (70-99) mg/dL Lactic Acid (0.4-2.0) mmol/L Calcium 7.9 L (8.5-10.1) mg/dL Total Bilirubin 9.7 H (0.2-1.0) mg/dL AST 352 H (15-37) U/L ALT 290 H (14-59) U/L Alkaline Phosphatase 773 H (46-116) U/L Ammonia (11-32) umol/L Lactate Dehydrogenase (81-234) U/L Troponin I High Sens (<=51) pg/mL B-Natriuretic Peptide (0-100) pg/ml Total Protein 7.9 (6.4-8.2) g/dL Albumin 1.0 L (3.4-5.0) g/dL Globulin 6.9 Albumin/Globulin Ratio 0.14 Amylase (25-115) U/L Lipase (73-393) U/L Urine Color Lili (YELLOW) Urine Appearance Slightly cloudy (CLEAR) Urine pH 6.0 (5.0-9.0) Ur Specific [place] 1.025 (1.005-1.030) Urine Protein Trace H (NEGATIVE) Urine Glucose (UA) 100 H (NEGATIVE) Urine Ketones Trace H (NEGATIVE) Urine Occult Blood Trace-intact H (NEGATIVE) Urine Nitrite Negative (NEGATIVE) Urine Bilirubin Large H (NEGATIVE) Urine Urobilinogen 2.0 H (0.2-1.0) mg/dL Ur Leukocyte Esterase Trace H (NEGATIVE) Urine RBC 0-5 (0-5) /HPF Urine WBC 5-10 H (0-5/HPF) /HPF Ur Epithelial Cells Many H (NOT SEEN) /HPF Urine Bacteria Many H (0-FEW/HPF) /HPF Urine Mucus Few H (NOT SEEN) /LPF Urine Opiates Screen (NEGATIVE) Ur Oxycodone Screen (NEGATIVE) Urine Methadone Screen (NEGATIVE) Ur Barbiturates Screen (NEGATIVE) U Tricyclic Antidepress (NEGATIVE) Ur Phencyclidine Scrn (NEGATIVE) Ur Amphetamine Screen (NEGATIVE) U Methamphetamines Scrn (NEGATIVE) Urine MDMA Screen (NEGATIVE) U Benzodiazepines Scrn (NEGATIVE) Urine Cocaine Screen (NEGATIVE) U Marijuana (THC) Screen (NEGATIVE) Ethyl Alcohol (0) mg/dL SARS-CoV-2 RNA ([place]) (NEGATIVE) 08/10/21 Range/Units 09:00 WBC (5.0-10.0) 10^3/uL RBC (4.2-5.4) 10^6/uL Hgb (12.0-16.0) g/dL Hct (37.0-47.0) % MCV (80-100) fL MCH (27.0-34.0) pg MCHC (33.0-35.0) g/dL Plt Count (150-450) 10^3/uL Neut % (Auto) (42.2-75.2) % Lymph % (Auto) (20.5-50.1) % Taylor % (Auto) (2-8) % Eos % (Auto) (1.0-3.0) % Baso % (Auto) (0.0-1.0) % Add Manual Diff Neutrophils % (Manual) (42-75) % Band Neutrophils % % Lymphocytes % (Manual) (20-50) % Monocytes % (Manual) (2-8) % Eosinophils % (Manual) (1-3) % Target Cells PT (9.0-12.0) SEC INR (0.9-1.2) APTT (22.0-34.0) SEC Sodium (136-145) mmol/L Potassium (3.5-5.1) mmol/L Chloride (98-107) mmol/L Carbon Dioxide (21-32) mmol/L Anion Gap (7-13) mEq/L BUN (7-18) mg/dL Creatinine (0.55-1.02) mg/dL Est Cr Clr Drug Dosing mL/min Estimated GFR (MDRD) BUN/Creatinine Ratio (No establ ref range) Glucose (70-99) mg/dL Lactic Acid (0.4-2.0) mmol/L Calcium (8.5-10.1) mg/dL Total Bilirubin (0.2-1.0) mg/dL AST (15-37) U/L ALT (14-59) U/L Alkaline Phosphatase (46-116) U/L Ammonia (11-32) umol/L Lactate Dehydrogenase (81-234) U/L Troponin I High Sens (<=51) pg/mL B-Natriuretic Peptide (0-100) pg/ml Total Protein (6.4-8.2) g/dL Albumin (3.4-5.0) g/dL Globulin Albumin/Globulin Ratio Amylase (25-115) U/L Lipase (73-393) U/L Urine Color (YELLOW) Urine Appearance (CLEAR) Urine pH (5.0-9.0) Ur Specific [place] (1.005-1.030) Urine Protein (NEGATIVE) Urine Glucose (UA) (NEGATIVE) Urine Ketones (NEGATIVE) Urine Occult Blood (NEGATIVE) Urine Nitrite (NEGATIVE) Urine Bilirubin (NEGATIVE) Urine Urobilinogen (0.2-1.0) mg/dL Ur Leukocyte Esterase (NEGATIVE) Urine RBC (0-5) /HPF Urine WBC (0-5/HPF) /HPF Ur Epithelial Cells (NOT SEEN) /HPF Urine Bacteria (0-FEW/HPF) /HPF Urine Mucus (NOT SEEN) /LPF Urine Opiates Screen Negative (NEGATIVE) Ur Oxycodone Screen Negative (NEGATIVE) Urine Methadone Screen Negative (NEGATIVE) Ur Barbiturates Screen Negative (NEGATIVE) U Tricyclic Antidepress Negative (NEGATIVE) Ur Phencyclidine Scrn Negative (NEGATIVE) Ur Amphetamine Screen Negative (NEGATIVE) U Methamphetamines Scrn Positive H (NEGATIVE) Urine MDMA Screen Negative (NEGATIVE) U Benzodiazepines Scrn Negative (NEGATIVE) Urine Cocaine Screen Negative (NEGATIVE) U Marijuana (THC) Screen Positive H (NEGATIVE) Ethyl Alcohol (0) mg/dL SARS-CoV-2 RNA ([place]) (NEGATIVE) Med Orders - Current: Current Medications Ibuprofen (Ibuprofen 400 Mg Tab) 400 mg PO Q6H PRN PRN Reason: Pain (mild 1-3) Last Admin: 08/10/21 13:37 Dose: 400 mg Documented by: Miscellaneous Information (Remove Nicotine Patch) 1 ea [facility] DAILY [facility] Nicotine (Nicotine 21 Mg/24 Hr Patch) 21 mg TRDERM DAILY [facility] Last Admin: 08/10/21 11:29 Dose: 21 mg Documented by: Ondansetron HCl (Ondansetron 4 Mg Tab.Dis) 4 mg PO Q6H PRN PRN Reason: nausea, able to take PO Sodium Chloride (Sodium Chloride 0.9% 10 Ml Syringe) 10 ml FLUSH ASDIRECTED PRN PRN Reason: Keep Vein Open Discontinued Medications Hydromorphone HCl (Hydromorphone 1 Mg/Ml Syringe) 1 mg IVPUSH ONETIME ONE Stop: 08/09/21 17:18 Last Admin: 08/09/21 17:35 Dose: 1 mg Documented by: Ondansetron HCl (Ondansetron 4 Mg/2 Ml Sdv) 4 mg IV ONETIME ONE Stop: 08/09/21 17:18 Last Admin: 08/09/21 17:34 Dose: 4 mg Documented by: Sodium Chloride (Sodium Chloride 0.9% 10 Ml Syringe) 10 ml FLUSH ASDIRECTED PRN PRN Reason: Keep Vein Open Last Admin: 08/09/21 17:35 Dose: 10 ml Documented by: - Exam Quality Assessment: DVT Prophylaxis. No: Supplemental Oxygen, Urine Catheter, Skin Breakdown General: Alert, Oriented, Cooperative, Mild Distress, Other (muscle wasting noted) HEENT: EOMI, Mucous Membr. Moist/[place], Scleral Icterus Neck: Supple, No JVD Lungs: Decreased Breath Sounds (at bases). No: Normal Respiratory Effort, Crackles, Rales, Rhonchi, Stridor, Wheezing Cardiovascular: Regular Rate, Regular Rhythm, Murmurs GI/Abdominal Exam: Distended, Other (fluid wave positive) (Female) Exam: Deferred Back Exam: Full Range of Motion Extremities: Normal Range of Motion, Non-Tender, Pedal Edema (3+ to the level of the knee bilaterally) Skin: Warm, Dry, Other (diffuse jaundice) Neurological: No New Focal Deficit Psy/Mental Status: Alert, Anxious, Other (sad) - Patient Data Lab Results Last 24 hrs: Laboratory Results - last 24 hr 08/09/21 08/09/21 08/09/21 Range/Units 15:54 16:09 16:09 WBC 10.3 H (5.0-10.0) 10^3/uL RBC 3.86 L (4.2-5.4) 10^6/uL Hgb 12.0 D (12.0-16.0) g/dL Hct 34.3 L (37.0-47.0) % MCV 88.9 (80-100) fL MCH 31.1 (27.0-34.0) pg MCHC 35.0 (33.0-35.0) g/dL Plt Count 241 (150-450) 10^3/uL Neut % (Auto) 81.9 H (42.2-75.2) % Lymph % (Auto) 9.5 L (20.5-50.1) % Taylor % (Auto) 6.8 (2-8) % Eos % (Auto) 1.5 (1.0-3.0) % Baso % (Auto) 0.3 (0.0-1.0) % Add Manual Diff Yes Neutrophils % (Manual) 82 H (42-75) % Band Neutrophils % 5 % Lymphocytes % (Manual) 9 L (20-50) % Monocytes % (Manual) 3 (2-8) % Eosinophils % (Manual) 1 (1-3) % Target Cells 2+ moderate PT (9.0-12.0) SEC INR (0.9-1.2) APTT (22.0-34.0) SEC Sodium 124 L (136-145) mmol/L Potassium 5.1 (3.5-5.1) mmol/L Chloride 93 L (98-107) mmol/L Carbon Dioxide 26 (21-32) mmol/L Anion Gap 10.1 (7-13) mEq/L BUN 18 (7-18) mg/dL Creatinine 0.75 (0.55-1.02) mg/dL Est Cr Clr Drug Dosing 63.09 mL/min Estimated GFR (MDRD) > 60 BUN/Creatinine Ratio 24.0 (No establ ref range) Glucose 219 H (70-99) mg/dL Lactic Acid (0.4-2.0) mmol/L Calcium 7.8 L (8.5-10.1) mg/dL Total Bilirubin 9.8 H (0.2-1.0) mg/dL AST 380 H (15-37) U/L ALT 315 H (14-59) U/L Alkaline Phosphatase 764 H (46-116) U/L Ammonia (11-32) umol/L Lactate Dehydrogenase 367 H (81-234) U/L Troponin I High Sens 6 (<=51) pg/mL B-Natriuretic Peptide 70 (0-100) pg/ml Total Protein 7.8 (6.4-8.2) g/dL Albumin 0.9 L (3.4-5.0) g/dL Globulin 6.9 Albumin/Globulin Ratio 0.13 Amylase 30 (25-115) U/L Lipase 171 (73-393) U/L Urine Color (YELLOW) Urine Appearance (CLEAR) Urine pH (5.0-9.0) Ur Specific [place] (1.005-1.030) Urine Protein (NEGATIVE) Urine Glucose (UA) (NEGATIVE) Urine Ketones (NEGATIVE) Urine Occult Blood (NEGATIVE) Urine Nitrite (NEGATIVE) Urine Bilirubin (NEGATIVE) Urine Urobilinogen (0.2-1.0) mg/dL Ur Leukocyte Esterase (NEGATIVE) Urine RBC (0-5) /HPF Urine WBC (0-5/HPF) /HPF Ur Epithelial Cells (NOT SEEN) /HPF Urine Bacteria (0-FEW/HPF) /HPF Urine Mucus (NOT SEEN) /LPF Urine Opiates Screen (NEGATIVE) Ur Oxycodone Screen (NEGATIVE) Urine Methadone Screen (NEGATIVE) Ur Barbiturates Screen (NEGATIVE) U Tricyclic Antidepress (NEGATIVE) Ur Phencyclidine Scrn (NEGATIVE) Ur Amphetamine Screen (NEGATIVE) U Methamphetamines Scrn (NEGATIVE) Urine MDMA Screen (NEGATIVE) U Benzodiazepines Scrn (NEGATIVE) Urine Cocaine Screen (NEGATIVE) U Marijuana (THC) Screen (NEGATIVE) Ethyl Alcohol < 3 (0) mg/dL SARS-CoV-2 RNA ([place]) Negative (NEGATIVE) 08/09/21 08/09/21 08/09/21 Range/Units 16:09 16:09 16:09 WBC (5.0-10.0) 10^3/uL RBC (4.2-5.4) 10^6/uL Hgb (12.0-16.0) g/dL Hct (37.0-47.0) % MCV (80-100) fL MCH (27.0-34.0) pg MCHC (33.0-35.0) g/dL Plt Count (150-450) 10^3/uL Neut % (Auto) (42.2-75.2) % Lymph % (Auto) (20.5-50.1) % Taylor % (Auto) (2-8) % Eos % (Auto) (1.0-3.0) % Baso % (Auto) (0.0-1.0) % Add Manual Diff Neutrophils % (Manual) (42-75) % Band Neutrophils % % Lymphocytes % (Manual) (20-50) % Monocytes % (Manual) (2-8) % Eosinophils % (Manual) (1-3) % Target Cells PT 15.9 H (9.0-12.0) SEC INR 1.6 H (0.9-1.2) APTT 27.5 (22.0-34.0) SEC Sodium (136-145) mmol/L Potassium (3.5-5.1) mmol/L Chloride (98-107) mmol/L Carbon Dioxide (21-32) mmol/L Anion Gap (7-13) mEq/L BUN (7-18) mg/dL Creatinine (0.55-1.02) mg/dL Est Cr Clr Drug Dosing mL/min Estimated GFR (MDRD) BUN/Creatinine Ratio (No establ ref range) Glucose (70-99) mg/dL Lactic Acid 1.7 (0.4-2.0) mmol/L Calcium (8.5-10.1) mg/dL Total Bilirubin (0.2-1.0) mg/dL AST (15-37) U/L ALT (14-59) U/L Alkaline Phosphatase (46-116) U/L Ammonia 62 H (11-32) umol/L Lactate Dehydrogenase (81-234) U/L Troponin I High Sens (<=51) pg/mL B-Natriuretic Peptide (0-100) pg/ml Total Protein (6.4-8.2) g/dL Albumin (3.4-5.0) g/dL Globulin Albumin/Globulin Ratio Amylase (25-115) U/L Lipase (73-393) U/L Urine Color (YELLOW) Urine Appearance (CLEAR) Urine pH (5.0-9.0) Ur Specific [place] (1.005-1.030) Urine Protein (NEGATIVE) Urine Glucose (UA) (NEGATIVE) Urine Ketones (NEGATIVE) Urine Occult Blood (NEGATIVE) Urine Nitrite (NEGATIVE) Urine Bilirubin (NEGATIVE) Urine Urobilinogen (0.2-1.0) mg/dL Ur Leukocyte Esterase (NEGATIVE) Urine RBC (0-5) /HPF Urine WBC (0-5/HPF) /HPF Ur Epithelial Cells (NOT SEEN) /HPF Urine Bacteria (0-FEW/HPF) /HPF Urine Mucus (NOT SEEN) /LPF Urine Opiates Screen (NEGATIVE) Ur Oxycodone Screen (NEGATIVE) Urine Methadone Screen (NEGATIVE) Ur Barbiturates Screen (NEGATIVE) U Tricyclic Antidepress (NEGATIVE) Ur Phencyclidine Scrn (NEGATIVE) Ur Amphetamine Screen (NEGATIVE) U Methamphetamines Scrn (NEGATIVE) Urine MDMA Screen (NEGATIVE) U Benzodiazepines Scrn (NEGATIVE) Urine Cocaine Screen (NEGATIVE) U Marijuana (THC) Screen (NEGATIVE) Ethyl Alcohol (0) mg/dL SARS-CoV-2 RNA ([place]) (NEGATIVE) 08/10/21 08/10/21 08/10/21 Range/Units 06:28 06:28 09:00 WBC 9.7 (5.0-10.0) 10^3/uL RBC 4.03 L (4.2-5.4) 10^6/uL Hgb 12.6 (12.0-16.0) g/dL Hct 36.7 L (37.0-47.0) % MCV 91.1 (80-100) fL MCH 31.3 (27.0-34.0) pg MCHC 34.3 (33.0-35.0) g/dL Plt Count 226 (150-450) 10^3/uL Neut % (Auto) (42.2-75.2) % Lymph % (Auto) (20.5-50.1) % [place] % (Auto) (2-8) % Eos % (Auto) (1.0-3.0) % Baso % (Auto) (0.0-1.0) % Add Manual Diff Neutrophils % (Manual) (42-75) % Band Neutrophils % % Lymphocytes % (Manual) (20-50) % Monocytes % (Manual) (2-8) % Eosinophils % (Manual) (1-3) % Target Cells PT (9.0-12.0) SEC INR (0.9-1.2) APTT (22.0-34.0) SEC Sodium 127 L (136-145) mmol/L Potassium 4.7 (3.5-5.1) mmol/L Chloride 94 L (98-107) mmol/L Carbon Dioxide 28 (21-32) mmol/L Anion Gap 9.7 (7-13) mEq/L BUN 17 (7-18) mg/dL Creatinine 0.82 (0.55-1.02) mg/dL Est Cr Clr Drug Dosing 57.70 mL/min Estimated GFR (MDRD) > 60 BUN/Creatinine Ratio 20.7 (No establ ref range) Glucose 156 H (70-99) mg/dL Lactic Acid (0.4-2.0) mmol/L Calcium 7.9 L (8.5-10.1) mg/dL Total Bilirubin 9.7 H (0.2-1.0) mg/dL AST 352 H (15-37) U/L ALT 290 H (14-59) U/L Alkaline Phosphatase 773 H (46-116) U/L Ammonia (11-32) umol/L Lactate Dehydrogenase (81-234) U/L Troponin I High Sens (<=51) pg/mL B-Natriuretic Peptide (0-100) pg/ml Total Protein 7.9 (6.4-8.2) g/dL Albumin 1.0 L (3.4-5.0) g/dL Globulin 6.9 Albumin/Globulin Ratio 0.14 Amylase (25-115) U/L Lipase (73-393) U/L Urine Color Lili (YELLOW) Urine Appearance Slightly cloudy (CLEAR) Urine pH 6.0 (5.0-9.0) Ur Specific [place] 1.025 (1.005-1.030) Urine Protein Trace H (NEGATIVE) Urine Glucose (UA) 100 H (NEGATIVE) Urine Ketones Trace H (NEGATIVE) Urine Occult Blood Trace-intact H (NEGATIVE) Urine Nitrite Negative (NEGATIVE) Urine Bilirubin Large H (NEGATIVE) Urine Urobilinogen 2.0 H (0.2-1.0) mg/dL Ur Leukocyte Esterase Trace H (NEGATIVE) Urine RBC 0-5 (0-5) /HPF Urine WBC 5-10 H (0-5/HPF) /HPF Ur Epithelial Cells Many H (NOT SEEN) /HPF Urine Bacteria Many H (0-FEW/HPF) /HPF Urine Mucus Few H (NOT SEEN) /LPF Urine Opiates Screen (NEGATIVE) Ur Oxycodone Screen (NEGATIVE) Urine Methadone Screen (NEGATIVE) Ur Barbiturates Screen (NEGATIVE) U Tricyclic Antidepress (NEGATIVE) Ur Phencyclidine Scrn (NEGATIVE) Ur Amphetamine Screen (NEGATIVE) U Methamphetamines Scrn (NEGATIVE) Urine MDMA Screen (NEGATIVE) U Benzodiazepines Scrn (NEGATIVE) Urine Cocaine Screen (NEGATIVE) U Marijuana (THC) Screen (NEGATIVE) Ethyl Alcohol (0) mg/dL SARS-CoV-2 RNA ([place]) (NEGATIVE) 08/10/21 Range/Units 09:00 WBC (5.0-10.0) 10^3/uL RBC (4.2-5.4) 10^6/uL Hgb (12.0-16.0) g/dL Hct (37.0-47.0) % MCV (80-100) fL MCH (27.0-34.0) pg MCHC (33.0-35.0) g/dL Plt Count (150-450) 10^3/uL Neut % (Auto) (42.2-75.2) % Lymph % (Auto) (20.5-50.1) % Taylor % (Auto) (2-8) % Eos % (Auto) (1.0-3.0) % Baso % (Auto) (0.0-1.0) % Add Manual Diff Neutrophils % (Manual) (42-75) % Band Neutrophils % % Lymphocytes % (Manual) (20-50) % Monocytes % (Manual) (2-8) % Eosinophils % (Manual) (1-3) % Target Cells PT (9.0-12.0) SEC INR (0.9-1.2) APTT (22.0-34.0) SEC Sodium (136-145) mmol/L Potassium (3.5-5.1) mmol/L Chloride (98-107) mmol/L Carbon Dioxide (21-32) mmol/L Anion Gap (7-13) mEq/L BUN (7-18) mg/dL Creatinine (0.55-1.02) mg/dL Est Cr Clr Drug Dosing mL/min Estimated GFR (MDRD) BUN/Creatinine Ratio (No establ ref range) Glucose (70-99) mg/dL Lactic Acid (0.4-2.0) mmol/L Calcium (8.5-10.1) mg/dL Total Bilirubin (0.2-1.0) mg/dL AST (15-37) U/L ALT (14-59) U/L Alkaline Phosphatase (46-116) U/L Ammonia (11-32) umol/L Lactate Dehydrogenase (81-234) U/L Troponin I High Sens (<=51) pg/mL B-Natriuretic Peptide (0-100) pg/ml Total Protein (6.4-8.2) g/dL Albumin (3.4-5.0) g/dL Globulin Albumin/Globulin Ratio Amylase (25-115) U/L Lipase (73-393) U/L Urine Color (YELLOW) Urine Appearance (CLEAR) Urine pH (5.0-9.0) Ur Specific [place] (1.005-1.030) Urine Protein (NEGATIVE) Urine Glucose (UA) (NEGATIVE) Urine Ketones (NEGATIVE) Urine Occult Blood (NEGATIVE) Urine Nitrite (NEGATIVE) Urine Bilirubin (NEGATIVE) Urine Urobilinogen (0.2-1.0) mg/dL Ur Leukocyte Esterase (NEGATIVE) Urine RBC (0-5) /HPF Urine WBC (0-5/HPF) /HPF Ur Epithelial Cells (NOT SEEN) /HPF Urine Bacteria (0-FEW/HPF) /HPF Urine Mucus (NOT SEEN) /LPF Urine Opiates Screen Negative (NEGATIVE) Ur Oxycodone Screen Negative (NEGATIVE) Urine Methadone Screen Negative (NEGATIVE) Ur Barbiturates Screen Negative (NEGATIVE) U Tricyclic Antidepress Negative (NEGATIVE) Ur Phencyclidine Scrn Negative (NEGATIVE) Ur Amphetamine Screen Negative (NEGATIVE) U Methamphetamines Scrn Positive H (NEGATIVE) Urine MDMA Screen Negative (NEGATIVE) U Benzodiazepines Scrn Negative (NEGATIVE) Urine Cocaine Screen Negative (NEGATIVE) U Marijuana (THC) Screen Positive H (NEGATIVE) Ethyl Alcohol (0) mg/dL SARS-CoV-2 RNA ([place]) (NEGATIVE) Result Diagrams: 08/10/21 06:28 08/10/21 06:28 Sepsis Event Note - Evaluation Sepsis Screening Result: No Definite Risk - Focused Exam Vital Signs: Vital Signs Temp Pulse Resp BP Pulse Ox 08/10/21 12:52 98.3 F 96 20 121/78 94 L 08/10/21 08:52 98.0 F 106 H 20 122/82 93 L 08/10/21 04:00 97.1 F 97 16 104/72 97 - Problem List Review Problem List Initiated/Reviewed/Updated: Yes - My Orders Last 24 Hours: My Active Orders 08/09/21 18:47 Height and Weight [RC] DAILY Oxygen Therapy [RC] PRN Up With Assistance [RC] ASDIRECTED VTE/DVT Education [RC] PER UNIT ROUTINE Vital Signs [RC] Q4H Ibuprofen [Motrin] 400 mg PO Q6H PRN Ondansetron [Zofran ODT] 4 mg PO Q6H PRN Sodium Chloride 0.9% [Saline Flush] 10 ml FLUSH ASDIRECTED PRN Saline Lock Insert [OM.PC] Routine Resuscitation Status Routine 08/09/21 18:48 Antiembolic Devices [RC] PER UNIT ROUTINE Intake and Output [RC] QSHIFT Pulse Oximetry [RC] PRN Antiembolic Hose [OM.PC] Per Unit Routine 08/09/21 19:29 Consult to Sr. Director [CONS] Routine 08/10/21 Breakfast Fluid Restriction [DIET] 08/10/21 09:00 Nicotine [Habitrol] 21 mg TRDERM DAILY 08/11/21 09:00 Remove Patch 1 ea TRDERM DAILY - Plan Plan:: Acute decompensated hepatic failure Hx of hep C without coma anasarca: severe protein calorie malnutrition hypoalbuminemia - MELDNa 28 ( creatinine 0.75, tbili 9.8, INR 1.6, Na 124; conveys 27-32% 90-day mortality) - pt does not qualify for transplant as last drink of alcohol was yesterday - albumin 0.9. - combat control/nutrition consult placed Plan: - I/O, daily weights. 2g Na daily with 1.5L fluid restrict - protein supplement will need to be provided that is low sodium and contains no additional fluid given strict intake. - ibuprofen for pain control - hospice consult placed - will discharge home with daughter when she arrives (likely monday) with goal of balancing hospice with hope that she will survive to 90 days sober and then can be evaluated by GI for possible transplant. she is considering quality of life options going forward - family assisting with getting her involved with alcohol and drug treatment/support CHRONIC CONDITIONS: - nicotine dependence, cigarettes, uncomplicated: nicotine replacement per protocol. smoking cessation counseling provided for 3-10 minutes - THC and methamphetamine abuse: UDS positive for THC and meth Code status: Full code, will need to be re-addressed prior to discharge given extremely poor prognosis. discussion daily but she wasn't ready to change it yet DVT prophylaxis: subQ lovenox
[2021-08-10] MEDS ORDERED: Acetaminophen 325 MG Tab PO PRN (21:24)
[2021-08-11] MEDS: Ibuprofen 400 MG Tab PO PRN ×4 (04:07→21:54)
--- NOTE | 2021-08-11 06:13 | PCM.PN ---
- General Info Date of Service: 08/11/21 Admission Dx/Problem (Free Text): Admission Diagnosis/Problem Admission Diagnosis/Problem Hepatic failure Subjective Update: Patient is alert and orientated, pleasant this a.m. Denies any abdominal pain, chest pains or pressures. States that she has not had a bowel movement since hospitalization. Excited to go live with her daughter, who will be here monday to pick her up. Remainder review systems negative except those listed above. - Patient Data Vitals - Most Recent: Last Vital Signs Temp 97.6 F 08/11/21 04:00 Pulse 104 H 08/11/21 04:00 Resp 18 08/11/21 04:00 BP 103/65 08/11/21 04:00 Pulse Ox 96 08/11/21 04:00 Weight - Most Recent: 137 lb I&O - Last 24 Hours: Intake & Output 08/10/21 08/10/21 08/11/21 14:59 22:59 06:59 Intake Total 600 Balance 600 Lab Results Last 24 Hours: Laboratory Results - last 24 hr 08/10/21 08/10/21 08/10/21 Range/Units 06:28 06:28 09:00 WBC 9.7 (5.0-10.0) 10^3/uL RBC 4.03 L (4.2-5.4) 10^6/uL Hgb 12.6 (12.0-16.0) g/dL Hct 36.7 L (37.0-47.0) % MCV 91.1 (80-100) fL MCH 31.3 (27.0-34.0) pg MCHC 34.3 (33.0-35.0) g/dL Plt Count 226 (150-450) 10^3/uL Sodium 127 L (136-145) mmol/L Potassium 4.7 (3.5-5.1) mmol/L Chloride 94 L (98-107) mmol/L Carbon Dioxide 28 (21-32) mmol/L Anion Gap 9.7 (7-13) mEq/L BUN 17 (7-18) mg/dL Creatinine 0.82 (0.55-1.02) mg/dL Est Cr Clr Drug Dosing 57.70 mL/min Estimated GFR (MDRD) > 60 BUN/Creatinine Ratio 20.7 (No establ ref range) Glucose 156 H (70-99) mg/dL Calcium 7.9 L (8.5-10.1) mg/dL Total Bilirubin 9.7 H (0.2-1.0) mg/dL AST 352 H (15-37) U/L ALT 290 H (14-59) U/L Alkaline Phosphatase 773 H (46-116) U/L Total Protein 7.9 (6.4-8.2) g/dL Albumin 1.0 L (3.4-5.0) g/dL Globulin 6.9 Albumin/Globulin Ratio 0.14 Urine Color Lili (YELLOW) Urine Appearance Slightly cloudy (CLEAR) Urine pH 6.0 (5.0-9.0) Ur Specific [place] 1.025 (1.005-1.030) Urine Protein Trace H (NEGATIVE) Urine Glucose (UA) 100 H (NEGATIVE) Urine Ketones Trace H (NEGATIVE) Urine Occult Blood Trace-intact H (NEGATIVE) Urine Nitrite Negative (NEGATIVE) Urine Bilirubin Large H (NEGATIVE) Urine Urobilinogen 2.0 H (0.2-1.0) mg/dL Ur Leukocyte Esterase Trace H (NEGATIVE) Urine RBC 0-5 (0-5) /HPF Urine WBC 5-10 H (0-5/HPF) /HPF Ur Epithelial Cells Many H (NOT SEEN) /HPF Urine Bacteria Many H (0-FEW/HPF) /HPF Urine Mucus Few H (NOT SEEN) /LPF Urine Opiates Screen (NEGATIVE) Ur Oxycodone Screen (NEGATIVE) Urine Methadone Screen (NEGATIVE) Ur Barbiturates Screen (NEGATIVE) U Tricyclic Antidepress (NEGATIVE) Ur Phencyclidine Scrn (NEGATIVE) Ur Amphetamine Screen (NEGATIVE) U Methamphetamines Scrn (NEGATIVE) Urine MDMA Screen (NEGATIVE) U Benzodiazepines Scrn (NEGATIVE) Urine Cocaine Screen (NEGATIVE) U Marijuana (THC) Screen (NEGATIVE) 08/10/21 Range/Units 09:00 WBC (5.0-10.0) 10^3/uL RBC (4.2-5.4) 10^6/uL Hgb (12.0-16.0) g/dL Hct (37.0-47.0) % MCV (80-100) fL MCH (27.0-34.0) pg MCHC (33.0-35.0) g/dL Plt Count (150-450) 10^3/uL Sodium (136-145) mmol/L Potassium (3.5-5.1) mmol/L Chloride (98-107) mmol/L Carbon Dioxide (21-32) mmol/L Anion Gap (7-13) mEq/L BUN (7-18) mg/dL Creatinine (0.55-1.02) mg/dL Est Cr Clr Drug Dosing mL/min Estimated GFR (MDRD) BUN/Creatinine Ratio (No establ ref range) Glucose (70-99) mg/dL Calcium (8.5-10.1) mg/dL Total Bilirubin (0.2-1.0) mg/dL AST (15-37) U/L ALT (14-59) U/L Alkaline Phosphatase (46-116) U/L Total Protein (6.4-8.2) g/dL Albumin (3.4-5.0) g/dL Globulin Albumin/Globulin Ratio Urine Color (YELLOW) Urine Appearance (CLEAR) Urine pH (5.0-9.0) Ur Specific [place] (1.005-1.030) Urine Protein (NEGATIVE) Urine Glucose (UA) (NEGATIVE) Urine Ketones (NEGATIVE) Urine Occult Blood (NEGATIVE) Urine Nitrite (NEGATIVE) Urine Bilirubin (NEGATIVE) Urine Urobilinogen (0.2-1.0) mg/dL Ur Leukocyte Esterase (NEGATIVE) Urine RBC (0-5) /HPF Urine WBC (0-5/HPF) /HPF Ur Epithelial Cells (NOT SEEN) /HPF Urine Bacteria (0-FEW/HPF) /HPF Urine Mucus (NOT SEEN) /LPF Urine Opiates Screen Negative (NEGATIVE) Ur Oxycodone Screen Negative (NEGATIVE) Urine Methadone Screen Negative (NEGATIVE) Ur Barbiturates Screen Negative (NEGATIVE) U Tricyclic Antidepress Negative (NEGATIVE) Ur Phencyclidine Scrn Negative (NEGATIVE) Ur Amphetamine Screen Negative (NEGATIVE) U Methamphetamines Scrn Positive H (NEGATIVE) Urine MDMA Screen Negative (NEGATIVE) U Benzodiazepines Scrn Negative (NEGATIVE) Urine Cocaine Screen Negative (NEGATIVE) U Marijuana (THC) Screen Positive H (NEGATIVE) Med Orders - Current: Current Medications Acetaminophen (Acetaminophen 325 Mg Tab) 500 mg PO Q6H PRN PRN Reason: Abdominal Pain Last Admin: 08/10/21 21:52 Dose: 500 mg Documented by: Ibuprofen (Ibuprofen 400 Mg Tab) 400 mg PO Q6H PRN PRN Reason: Pain (mild 1-3) Last Admin: 08/11/21 04:07 Dose: 400 mg Documented by: Miscellaneous Information (Remove Nicotine Patch) 1 ea TRDERM DAILY [facility] Nicotine (Nicotine 21 Mg/24 Hr Patch) 21 mg TRDERM DAILY [facility] Last Admin: 08/10/21 11:29 Dose: 21 mg Documented by: Ondansetron HCl (Ondansetron 4 Mg Tab.Dis) 4 mg PO Q6H PRN PRN Reason: nausea, able to take PO Sodium Chloride (Sodium Chloride 0.9% 10 Ml Syringe) 10 ml FLUSH ASDIRECTED PRN PRN Reason: Keep Vein Open Discontinued Medications Hydromorphone HCl (Hydromorphone 1 Mg/Ml Syringe) 1 mg IVPUSH ONETIME ONE Stop: 08/09/21 17:18 Last Admin: 08/09/21 17:35 Dose: 1 mg Documented by: Ondansetron HCl (Ondansetron 4 Mg/2 Ml Sdv) 4 mg IV ONETIME ONE Stop: 08/09/21 17:18 Last Admin: 08/09/21 17:34 Dose: 4 mg Documented by: Sodium Chloride (Sodium Chloride 0.9% 10 Ml Syringe) 10 ml FLUSH ASDIRECTED PRN PRN Reason: Keep Vein Open Last Admin: 08/09/21 17:35 Dose: 10 ml Documented by: - Exam General: Alert, Oriented (Stigmata of chronic liver disease, mild jaundice noted) HEENT: Pupils Equal Neck: Supple Lungs: Clear to Auscultation Cardiovascular: Regular Rate, Regular Rhythm GI/Abdominal Exam: Distended (Abdominal ascites noted), Other Extremities: Normal Inspection Peripheral Pulses: 2+: Radial (L), Radial (R) Skin: Warm, Dry Neurological: No New Focal Deficit Psy/Mental Status: Alert - Patient Data Lab Results Last 24 hrs: Laboratory Results - last 24 hr 08/10/21 08/10/21 08/10/21 Range/Units 06:28 06:28 09:00 WBC 9.7 (5.0-10.0) 10^3/uL RBC 4.03 L (4.2-5.4) 10^6/uL Hgb 12.6 (12.0-16.0) g/dL Hct 36.7 L (37.0-47.0) % MCV 91.1 (80-100) fL MCH 31.3 (27.0-34.0) pg MCHC 34.3 (33.0-35.0) g/dL Plt Count 226 (150-450) 10^3/uL Sodium 127 L (136-145) mmol/L Potassium 4.7 (3.5-5.1) mmol/L Chloride 94 L (98-107) mmol/L Carbon Dioxide 28 (21-32) mmol/L Anion Gap 9.7 (7-13) mEq/L BUN 17 (7-18) mg/dL Creatinine 0.82 (0.55-1.02) mg/dL Est Cr Clr Drug Dosing 57.70 mL/min Estimated GFR (MDRD) > 60 BUN/Creatinine Ratio 20.7 (No establ ref range) Glucose 156 H (70-99) mg/dL Calcium 7.9 L (8.5-10.1) mg/dL Total Bilirubin 9.7 H (0.2-1.0) mg/dL AST 352 H (15-37) U/L ALT 290 H (14-59) U/L Alkaline Phosphatase 773 H (46-116) U/L Total Protein 7.9 (6.4-8.2) g/dL Albumin 1.0 L (3.4-5.0) g/dL Globulin 6.9 Albumin/Globulin Ratio 0.14 Urine Color Lili (YELLOW) Urine Appearance Slightly cloudy (CLEAR) Urine pH 6.0 (5.0-9.0) Ur Specific [place] 1.025 (1.005-1.030) Urine Protein Trace H (NEGATIVE) Urine Glucose (UA) 100 H (NEGATIVE) Urine Ketones Trace H (NEGATIVE) Urine Occult Blood Trace-intact H (NEGATIVE) Urine Nitrite Negative (NEGATIVE) Urine Bilirubin Large H (NEGATIVE) Urine Urobilinogen 2.0 H (0.2-1.0) mg/dL Ur Leukocyte Esterase Trace H (NEGATIVE) Urine RBC 0-5 (0-5) /HPF Urine WBC 5-10 H (0-5/HPF) /HPF Ur Epithelial Cells Many H (NOT SEEN) /HPF Urine Bacteria Many H (0-FEW/HPF) /HPF Urine Mucus Few H (NOT SEEN) /LPF Urine Opiates Screen (NEGATIVE) Ur Oxycodone Screen (NEGATIVE) Urine Methadone Screen (NEGATIVE) Ur Barbiturates Screen (NEGATIVE) U Tricyclic Antidepress (NEGATIVE) Ur Phencyclidine Scrn (NEGATIVE) Ur Amphetamine Screen (NEGATIVE) U Methamphetamines Scrn (NEGATIVE) Urine MDMA Screen (NEGATIVE) U Benzodiazepines Scrn (NEGATIVE) Urine Cocaine Screen (NEGATIVE) U Marijuana (THC) Screen (NEGATIVE) 08/10/21 Range/Units 09:00 WBC (5.0-10.0) 10^3/uL RBC (4.2-5.4) 10^6/uL Hgb (12.0-16.0) g/dL Hct (37.0-47.0) % MCV (80-100) fL MCH (27.0-34.0) pg MCHC (33.0-35.0) g/dL Plt Count (150-450) 10^3/uL Sodium (136-145) mmol/L Potassium (3.5-5.1) mmol/L Chloride (98-107) mmol/L Carbon Dioxide (21-32) mmol/L Anion Gap (7-13) mEq/L BUN (7-18) mg/dL Creatinine (0.55-1.02) mg/dL Est Cr Clr Drug Dosing mL/min Estimated GFR (MDRD) BUN/Creatinine Ratio (No establ ref range) Glucose (70-99) mg/dL Calcium (8.5-10.1) mg/dL Total Bilirubin (0.2-1.0) mg/dL AST (15-37) U/L ALT (14-59) U/L Alkaline Phosphatase (46-116) U/L Total Protein (6.4-8.2) g/dL Albumin (3.4-5.0) g/dL Globulin Albumin/Globulin Ratio Urine Color (YELLOW) Urine Appearance (CLEAR) Urine pH (5.0-9.0) Ur Specific [place] (1.005-1.030) Urine Protein (NEGATIVE) Urine Glucose (UA) (NEGATIVE) Urine Ketones (NEGATIVE) Urine Occult Blood (NEGATIVE) Urine Nitrite (NEGATIVE) Urine Bilirubin (NEGATIVE) Urine Urobilinogen (0.2-1.0) mg/dL Ur Leukocyte Esterase (NEGATIVE) Urine RBC (0-5) /HPF Urine WBC (0-5/HPF) /HPF Ur Epithelial Cells (NOT SEEN) /HPF Urine Bacteria (0-FEW/HPF) /HPF Urine Mucus (NOT SEEN) /LPF Urine Opiates Screen Negative (NEGATIVE) Ur Oxycodone Screen Negative (NEGATIVE) Urine Methadone Screen Negative (NEGATIVE) Ur Barbiturates Screen Negative (NEGATIVE) U Tricyclic Antidepress Negative (NEGATIVE) Ur Phencyclidine Scrn Negative (NEGATIVE) Ur Amphetamine Screen Negative (NEGATIVE) U Methamphetamines Scrn Positive H (NEGATIVE) Urine MDMA Screen Negative (NEGATIVE) U Benzodiazepines Scrn Negative (NEGATIVE) Urine Cocaine Screen Negative (NEGATIVE) U Marijuana (THC) Screen Positive H (NEGATIVE) Result Diagrams: 08/10/21 06:28 08/10/21 06:28 Sepsis Event Note - Evaluation Sepsis Screening Result: No Definite Risk - Focused Exam Vital Signs: Vital Signs Temp Pulse Resp BP Pulse Ox 08/11/21 04:00 97.6 F 104 H 18 103/65 96 08/10/21 20:00 97.1 F 102 H 22 H 106/70 97 - Problem List & Annotations (1) Alcoholic liver disease SNOMED Code(s): 88077434 Code(s): K70.9 - ALCOHOLIC LIVER DISEASE, UNSPECIFIED Status: Acute Current Visit: No (2) Ascites due to alcoholic hepatitis SNOMED Code(s): 8741928587578067 Code(s): K70.11 - ALCOHOLIC HEPATITIS WITH ASCITES Status: Acute Current Visit: No (3) History of hepatitis C SNOMED Code(s): 56461521910274, 79507604155898 Code(s): Z86.19 - PERSONAL HISTORY OF OTHER INFECTIOUS AND PARASITIC DISEASES Status: Acute Current Visit: No (4) Liver failure SNOMED Code(s): 80281201 Code(s): K72.90 - HEPATIC FAILURE, UNSPECIFIED WITHOUT COMA Status: Acute Current Visit: No Qualifiers: Liver failure chronicity: chronic Hepatic coma status: without hepatic coma Qualified Code(s): K72.10 - Chronic hepatic failure without coma - Problem List Review Problem List Initiated/Reviewed/Updated: Yes - My Orders Last 24 Hours: My Active Orders 08/10/21 21:24 Acetaminophen [TylenoL] 500 mg PO Q6H PRN - Plan Plan:: Acute decompensated hepatic failure Hx of hep C without coma anasarca severe protein calorie malnutrition hypoalbuminemia - MELDNa 28 ( creatinine 0.75, tbili 9.8, INR 1.6, Na 124; conveys 27-32% 90-day mortality) - pt does not qualify for transplant as last drink of alcohol several days ago - drug use - albumin 0.9 - warhead maintenance specialist/nutrition consult placed - No evidence of hepatic encephalopathy at this time however patient has not had a bowel movement in several days, lactulose 20 mg p.o. twice daily to target 3 bowel movements per day Plan: - I/O, daily weights. 2g Na daily with 1.5L fluid restrict - protein supplement will need to be provided that is low sodium and contains no additional fluid given strict intake. - tylenol limit 2g for pain control - will discharge home with daughter when she arrives (likely Monday) with goal that she will survive to 90 days sober and then can be evaluated by GI for possible transplant. she is considering quality of life options going forward - again discussed hospice care - family assisting with getting her involved with alcohol and drug treatment/support CHRONIC CONDITIONS: - nicotine dependence, cigarettes, uncomplicated: nicotine replacement per protocol - THC and methamphetamine abuse: UDS positive for THC and meth Code status: Full code, will need to be continue to re-addressed prior to discharge given extremely poor prognosis. Daily discussion DVT prophylaxis: subQ lovenox Patient medically stable - to transfer home with daughter
[2021-08-11] MEDS: Nicotine 21 MG/24 Hr Patch TRDERM SCH (09:21)
[2021-08-11] MEDS: Lactulose Soln 10 GM/15 ML 30 ML UD Cup PO SCH ×2 (10:43→21:52)
[2021-08-12] MEDS: Ibuprofen 400 MG Tab PO PRN (03:30)
--- NOTE | 2021-08-12 06:51 | PCM.PN ---
- General Info Date of Service: 08/12/21 Admission Dx/Problem (Free Text): Admission Diagnosis/Problem Admission Diagnosis/Problem Hepatic failure Subjective Update: Patient is alert and orientated, pleasant this a.m. States minimal abdominal pain denies SOB chest pains or pressures. States that she had a BM yesterday X1. Excited to go live with her daughter, who will be here monday to pick her up. Remainder review systems negative except those listed above. - Patient Data Vitals - Most Recent: Last Vital Signs Temp 97.3 F 08/12/21 04:00 Pulse 74 08/12/21 04:00 Resp 20 08/12/21 04:00 BP 115/68 08/12/21 04:00 Pulse Ox 97 08/12/21 04:00 Weight - Most Recent: 305 lb 1.916 oz I&O - Last 24 Hours: Intake & Output 08/11/21 08/11/21 08/12/21 14:59 22:59 06:59 Intake Total 1115 300 Balance 1115 300 [place] Results Last 24 Hours: Microbiology 08/10/21 09:00 Urine Culture - Final Urine, Voided MIXED HERMELINDA SUGGESTIVE OF CONTAMINATION. Med Orders - Current: Current Medications Acetaminophen (Acetaminophen 325 Mg Tab) 500 mg PO Q6H PRN PRN Reason: Abdominal Pain Last Admin: 08/10/21 21:52 Dose: 500 mg Documented by: Ibuprofen (Ibuprofen 400 Mg Tab) 400 mg PO Q6H PRN PRN Reason: Pain (mild 1-3) Last Admin: 08/12/21 03:30 Dose: 400 mg Documented by: Lactulose (Lactulose Soln 10 Gm/15 Ml 30 Ml Ud Cup) 20 gm PO BID [facility] Last Admin: 08/11/21 21:52 Dose: 20 gm Documented by: Miscellaneous Information (Remove Nicotine Patch) 1 ea TRDERM DAILY [facility] Last Admin: 08/11/21 09:22 Dose: 1 ea Documented by: Nicotine (Nicotine 21 Mg/24 Hr Patch) 21 mg TRDERM DAILY [facility] Last Admin: 08/11/21 09:21 Dose: 21 mg Documented by: Ondansetron HCl (Ondansetron 4 Mg Tab.Dis) 4 mg PO Q6H PRN PRN Reason: nausea, able to take PO Sodium Chloride (Sodium Chloride 0.9% 10 Ml Syringe) 10 ml FLUSH ASDIRECTED PRN PRN Reason: Keep Vein Open Discontinued Medications Hydromorphone HCl (Hydromorphone 1 Mg/Ml Syringe) 1 mg IVPUSH ONETIME ONE Stop: 08/09/21 17:18 Last Admin: 08/09/21 17:35 Dose: 1 mg Documented by: Ondansetron HCl (Ondansetron 4 Mg/2 Ml Sdv) 4 mg IV ONETIME ONE Stop: 08/09/21 17:18 Last Admin: 08/09/21 17:34 Dose: 4 mg Documented by: Sodium Chloride (Sodium Chloride 0.9% 10 Ml Syringe) 10 ml FLUSH ASDIRECTED PRN PRN Reason: Keep Vein Open Last Admin: 08/09/21 17:35 Dose: 10 ml Documented by: - Exam General: Alert, Oriented HEENT: Pupils Equal, Pupils Reactive Neck: Supple Lungs: Clear to Auscultation, Normal Respiratory Effort GI/Abdominal Exam: Distended (stigmata of chronic liver disease) Extremities: Normal Inspection Peripheral Pulses: 2+: Radial (L), Radial (R) Skin: Warm, Dry Neurological: No New Focal Deficit Psy/Mental Status: Alert - Patient Data Result Diagrams: 08/10/21 06:28 08/10/21 06:28 [place] Results Last 24 hrs: Microbiology 08/10/21 09:00 Urine Culture - Final Urine, Voided MIXED HERMELINDA SUGGESTIVE OF CONTAMINATION. Sepsis Event Note - Evaluation Sepsis Screening Result: No Definite Risk - Focused Exam Vital Signs: Vital Signs Temp Pulse Resp BP BP Pulse Ox 08/12/21 04:00 97.3 F 74 20 115/68 97 08/12/21 00:00 97.5 F 70 18 93/66 100 08/11/21 20:00 96.8 F L 99 18 125/86 93 L - Problem List & Annotations (1) Alcoholic liver disease SNOMED Code(s): 22583350 Code(s): K70.9 - ALCOHOLIC LIVER DISEASE, UNSPECIFIED Status: Acute Current Visit: No (2) Ascites due to alcoholic hepatitis SNOMED Code(s): 5816816914240673 Code(s): K70.11 - ALCOHOLIC HEPATITIS WITH ASCITES Status: Acute Current Visit: No (3) History of hepatitis C SNOMED Code(s): 83985918282054, [id number] Code(s): Z86.19 - PERSONAL HISTORY OF OTHER INFECTIOUS AND PARASITIC DISEASES Status: Acute Current Visit: No (4) Liver failure SNOMED Code(s): 00782730 Code(s): K72.90 - HEPATIC FAILURE, UNSPECIFIED WITHOUT COMA Status: Acute Current Visit: No Qualifiers: Liver failure chronicity: chronic Hepatic coma status: without hepatic coma Qualified Code(s): K72.10 - Chronic hepatic failure without coma - Problem List Review Problem List Initiated/Reviewed/Updated: Yes - My Orders Last 24 Hours: My Active Orders 08/11/21 09:30 Lactulose [Cephulac] 20 gm PO BID - Plan Plan:: Acute decompensated hepatic failure Hx of hep C without coma anasarca severe protein calorie malnutrition hypoalbuminemia - MELDNa 28 ( creatinine 0.75, tbili 9.8, INR 1.6, Na 124; conveys 27-32% 90-day mortality) - pt does not qualify for transplant as last drink of alcohol several days ago - drug use - albumin 0.9 - box covering machine operator/nutrition consult placed - No evidence of hepatic encephalopathy at this time - lactulose 20 mg p.o. twice daily to target 3 bowel movements per day Plan: - I/O, daily weights. 2g Na daily with 1.5L fluid restrict - protein supplement will need to be provided that is low sodium and contains no additional fluid given strict intake. - tylenol limit 2g for pain control - will discharge home with daughter when she arrives (likely Monday) with goal that she will survive to 90 days sober and then can be evaluated by GI for possible transplant. she is considering quality of life options going forward - again discussed hospice care - family assisting with getting her involved with alcohol and drug treatment/support CHRONIC CONDITIONS: - nicotine dependence, cigarettes, uncomplicated: nicotine replacement per protocol - THC and methamphetamine abuse: UDS positive for THC and meth Code status: Full code, will need to be continue to re-addressed prior to discharge given extremely poor prognosis. Daily discussion DVT prophylaxis: subQ lovenox Patient medically stable - to transfer home with daughter - social work looking at swing bed options
[2021-08-12] MEDS: Nicotine 21 MG/24 Hr Patch TRDERM SCH (10:53)
[2021-08-12] MEDS: Lactulose Soln 10 GM/15 ML 30 ML UD Cup PO SCH (10:53)
--- NOTE | 2021-08-12 15:23 | PCM.DCSUM1 ---
Discharge Summary - Hospital Course Free Text/Narrative:: Patient is a 61-year-old female with a history of alcoholic cirrhosis, history of hepatitis C, chronic alcohol use, IV drug use who initially presented to the emergency department due to worsening abdominal distention and jaundice. Patient was found to have a meld NA score of 28. Patient was admitted for further evaluation. Patient initially was placed on a transfer list to outside facility for GI consultation however prolonged discussions with patient indicated that she did not want transfer at this time discussions were had about hospice care. Patient stated that she did not want to transfer and did not want further consultation but at the same time was not excepting of hospice at the current time. Multiple prolonged discussions were had about CODE STATUS and possible options for treatment. Patient's options are limited for treatment given her continued alcohol and drug use. Patient declined transfer and further work-up. Discussion was had with family and at the time of discharge patient stated that her daughter is coming to pick her up from the [facility] and she will be traveling to the [facility] to live with her. Discussed that patient to establish with a primary care provider and counselor aid/veneer manufacturer wherever she locates to. During hospitalization patient remained hemodynamically stable. Lactulose was added to her medication regiment in order to prevent hepatic encephalopathy. No acute concerns for abdominal infection, hepatic cephalopathy, varices upon discharge. Patient remained hemodynamically stable. Given patient's stability but continued need for PT/OT and social media campaign manager patient was discharged and admitted to [facility]. - Discharge Data Discharge Date: 08/12/21 Discharge Disposition: DC/Tfer W/I Hosp To [place] [id number] Condition: Good - Referral to Home Health Primary Care Physician: PCP None - Discharge Diagnosis/Problem(s) (1) Alcoholic liver disease SNOMED Code(s): 15427495 ICD Code: K70.9 - ALCOHOLIC LIVER DISEASE, UNSPECIFIED Status: Acute Cu rrent Visit: No (2) Ascites due to alcoholic hepatitis SNOMED Code(s): 1844712676856076 ICD Code: K70.11 - ALCOHOLIC HEPATITIS WITH ASCITES Status: Acute Current Visit: No (3) History of hepatitis C SNOMED Code(s): 68760016066170, 07444358254176 ICD Code: Z86.19 - PERSONAL HISTORY OF OTHER INFECTIOUS AND PARASITIC DISEASES Status: Acute Current Visit: No (4) Liver failure SNOMED Code(s): 12199211 ICD Code: K72.90 - HEPATIC FAILURE, UNSPECIFIED WITHOUT COMA Status: Acute Current Visit: No Qualifiers: Liver failure chronicity: chronic Hepatic coma status: without hepatic coma Qualified Code(s): K72.10 - Chronic hepatic failure without coma - Patient Summary/Data Consults: Consultations 08/09/21 19:29 Consult to Monorail Crane Operator [CONS] Routine - Patient Instructions Diet: Low Sodium - Discharge Plan *PRESCRIPTION DRUG MONITORING PROGRAM REVIEWED*: Not Applicable *COPY OF PRESCRIPTION DRUG MONITORING REPORT IN PATIENT LISA: Not Applicable Home Medications: Home Meds Acetaminophen [Tylenol] 500 mg PO Q6H PRN tablet 08/12/21 [Rx] Lactulose [Cephulac] 20 gm PO BID cup 08/12/21 [Rx] Nicotine [Habitrol] 21 mg TRDERM DAILY patch 08/12/21 [Rx] Ondansetron [Zofran ODT] 4 mg PO Q6H PRN tab.dis 08/12/21 [Rx] Forms: ED Department Discharge - Discharge Summary/Plan Comment DC Time >30 min.: Yes Total # of Minutes for Discharge Time: 30 minutes - Patient Data Vitals - Most Recent: Last Vital Signs Temp 97.7 F 08/12/21 12:00 Pulse 64 08/12/21 12:00 Resp 20 08/12/21 12:00 BP 110/71 08/12/21 12:00 Pulse Ox 97 08/12/21 12:00 Weight - Most Recent: 305 lb 1.916 oz I&O - Last 24 hours: Intake & Output 08/12/21 08/12/21 08/12/21 06:59 14:59 22:59 Intake Total 50 Balance 50 RADHA Results - Last 24 hrs: Microbiology 08/10/21 09:00 Urine Culture - Final Urine, Voided MIXED HERMELINDA SUGGESTIVE OF CONTAMINATION. Med Orders - Current: Current Medications Acetaminophen (Acetaminophen 325 Mg Tab) 500 mg PO Q6H PRN PRN Reason: Abdominal Pain Last Admin: 08/10/21 21:52 Dose: 500 mg Documented by: Ibuprofen (Ibuprofen 400 Mg Tab) 400 mg PO Q6H PRN PRN Reason: Pain (mild 1-3) Last Admin: 08/12/21 03:30 Dose: 400 mg Documented by: Lactulose (Lactulose Soln 10 Gm/15 Ml 30 Ml Ud Cup) 20 gm PO BID SHIREEN Last Admin: 08/12/21 10:53 Dose: 20 gm Documented by: Miscellaneous Information (Remove Nicotine Patch) 1 ea TRDERM DAILY [facility] Last Admin: 08/12/21 11:22 Dose: Not Given Documented by: Nicotine (Nicotine 21 Mg/24 Hr Patch) 21 mg TRDERM DAILY [facility] Last Admin: 08/12/21 10:53 Dose: 21 mg Documented by: Ondansetron HCl (Ondansetron 4 Mg Tab.Dis) 4 mg PO Q6H PRN PRN Reason: nausea, able to take PO Sodium Chloride (Sodium Chloride 0.9% 10 Ml Syringe) 10 ml FLUSH ASDIRECTED PRN PRN Reason: Keep Vein Open Discontinued Medications Hydromorphone HCl (Hydromorphone 1 Mg/Ml Syringe) 1 mg IVPUSH ONETIME ONE Stop: 08/09/21 17:18 Last Admin: 08/09/21 17:35 Dose: 1 mg Documented by: Ondansetron HCl (Ondansetron 4 Mg/2 Ml Sdv) 4 mg IV ONETIME ONE Stop: 08/09/21 17:18 Last Admin: 08/09/21 17:34 Dose: 4 mg Documented by: Sodium Chloride (Sodium Chloride 0.9% 10 Ml Syringe) 10 ml FLUSH ASDIRECTED PRN PRN Reason: Keep Vein Open Last Admin: 08/09/21 17:35 Dose: 10 ml Documented by:
== END 2021-08-12 18:00 | disposition swing bed (61) | DRG 432 ==
LOC: DL.ED 15:51 → DL.MS 17:43 → DL.ED 17:51
PROVIDERS: ADMIT Hospitalist; ATTEND Hospitalist
DX: K70.40 Alcoholic hepatic failure without coma (principal); E43 Unspecified severe protein-calorie malnutrition; Z68.43 Body mass index [BMI] 50.0-59.9, adult; F10.288 Alcohol dependence with other alcohol-induced disorder; K70.11 Alcoholic hepatitis with ascites; E88.09 Other disorders of plasma-protein metabolism, not elsewhere classified; F17.210 Nicotine dependence, cigarettes, uncomplicated; F12.10 Cannabis abuse, uncomplicated; F15.10 Other stimulant abuse, uncomplicated; Z20.822 Contact with and (suspected) exposure to COVID-19; Z86.19 Personal history of other infectious and parasitic diseases
CPT/HCPCS: 36415; 71045; 80053; 80305-QW; 80307; 81001; 82140; 82150; 83605; 83615; 83690; 83880; 84484; 85025; 85027; 85610; 85730; 87086; 96374; 96375; 99285-25; A9270-GY; J1170; J2405; U0002

== ENCOUNTER 2021-08-12 08:16 | Inpatient (IN) | payer MEDICAID ==
[2021-08-12] MEDS ORDERED: Ondansetron 4 MG Tab.DIS PO PRN (17:58)
--- NOTE | 2021-08-12 17:59 | PCM.HP ---
H&P History of Present Illness - General Date of Service: 08/12/21 Admit Problem/Dx: Alcoholic cirrhosis of liver failure admit to swing bed Source of Information: Patient, EMS - History of Present Illness Initial Comments - Free Text/Narative: Patient is a 61-year-old female with a history of alcoholic cirrhosis, history of hepatitis C, chronic alcohol use, IV drug use who initially presented to the emergency department due to worsening abdominal distention and jaundice. Patient was found to have a meld NA score of 28. Patient was admitted for further evaluation. Patient initially was placed on a transfer list to outside facility for GI consultation however prolonged discussions with patient indicated that she did not want transfer at this time discussions were had about hospice care. Patient stated that she did not want to transfer and did not want further consultation but at the same time was not excepting of hospice at the current time. Multiple prolonged discussions were had about CODE STATUS and possible options for treatment. Patient's options are limited for treatment given her continued alcohol and drug use. Patient declined transfer and further work-up. Discussion was had with family and at the time of discharge patient stated that her daughter is coming to pick her up from the [facility] and she will be traveling to the [facility] to live with her. Discussed that patient to establish with a primary care provider and information services vice president/stitcher standard machine wherever she locates to. During hospitalization patient remained hemodynamically stable. Lactulose was added to her medication regiment in order to prevent hepatic encephalopathy. No acute concerns for abdominal infection, hepatic cephalopathy, varices upon discharge. Patient remained hemodynamically stable. Given patient's stability but continued need for PT/OT and manager social work patient was discharged and admitted to swing bed. - Related Data Allergies/Adverse Reactions: Allergies Allergy/AdvReac Type Severity Reaction Status Date / Time No Known Allergies Allergy Verified 02/28/21 17:56 Home Medications: Home Meds Acetaminophen [Tylenol] 500 mg PO Q6H PRN tablet 08/12/21 [Rx] Lactulose [Cephulac] 20 gm PO BID cup 08/12/21 [Rx] Nicotine [Habitrol] 21 mg TRDERM DAILY patch 08/12/21 [Rx] Ondansetron [Zofran ODT] 4 mg PO Q6H PRN tab.dis 08/12/21 [Rx] Past Medical History - Past Health History Medical/Surgical History: Denies Medical/Surgical History HEENT History: Reports: Other (See Below) Other HEENT History: Dental implant upper and lower Cardiovascular History: Reports: None Respiratory History: Reports: None Gastrointestinal History: Reports: Hepatitis Genitourinary History: Reports: None MELTING FURNACE SKIMMER History: Reports: None Musculoskeletal History: Reports: Fracture, Other (See Below) Other Musculoskeletal History: hx of right foot fracture. restless legs Neurological History: Reports: Other (See Below) Other Neuro History: Possible head trauma from accident End of July 2021 Psychiatric History: Reports: Addiction, Depression Endocrine/Metabolic History: Reports: None Hematologic History: Reports: Other (See Below) Other Hematologic History: possible iron deficiency per her daughter Immunologic History: Reports: None Oncologic (Cancer) History: Reports: None Dermatologic History: Reports: None - Infectious Disease History Infectious Disease History: Reports: Chicken Pox, Hepatitis C - Past Surgical History Head Surgeries/Procedures: Reports: None HEENT Surgical History: Reports: None Cardiovascular Surgical History: Reports: None GI Surgical History: Reports: None Female Surgical History: Reports: Hysterectomy Neurological Surgical History: Reports: None Musculoskeletal Surgical History: Reports: None Social & Family History - Family History Family Medical History: No Pertinent Family History - Tobacco Use Tobacco Use Status *Q: Current Every Day Tobacco User Years of Tobacco use: 50 Packs/Tins Daily: 1 - Caffeine Use Caffeine Use: Reports: Coffee - Alcohol Use Days Per Week of Alcohol Use: 7 Number of Drinks Per Day: 3 Total Drinks Per Week: 21 Date of Last Drink: 08/08/21 Time of Last Drink: 08:00 - Recreational Drug Use Recreational Drug Use: Yes Drug Use in Last 12 Months: Yes Recreational Drug Type: Reports: Marijuana/Hashish H&P Review of Systems - Review of Systems: Review Of Systems: Comprehensive ROS is negative, except as noted in HPI. Exam - Exam Exam: See Below - Vital Signs Weight: 137 lb - Exam General: Alert, Oriented HEENT: Conjunctiva Clear Neck: Supple Lungs: Clear to Auscultation, Normal Respiratory Effort Cardiovascular: Regular Rate, Regular Rhythm GI/Abdominal Exam: Distended Back Exam: Normal Inspection Extremities: Normal Inspection Peripheral Pulses: 2+: Radial (L), Radial (R) Skin: Warm, Dry Neurological: Cranial Nerves Intact Neuro Extensive - Mental Status: Alert Neuro Extensive - Motor, Sensory, Reflexes: CN II-XII Intact - Problem List (1) Alcoholic liver disease SNOMED Code(s): 48640273 ICD Code: K70.9 - ALCOHOLIC LIVER DISEASE, UNSPECIFIED Status: Acute (2) Ascites due to alcoholic hepatitis SNOMED Code(s): 8212349561644634 ICD Code: K70.11 - ALCOHOLIC HEPATITIS WITH ASCITES Status: Acute (3) History of hepatitis C SNOMED Code(s): 70510728754673, 03887488186012 ICD Code: Z86.19 - PERSONAL HISTORY OF OTHER INFECTIOUS AND PARASITIC DISEASES Status: Acute (4) Liver failure SNOMED Code(s): 45555886 ICD Code: K72.90 - HEPATIC FAILURE, UNSPECIFIED WITHOUT COMA Status: Acute Qualifiers: Liver failure chronicity: chronic Hepatic coma status: without hepatic coma Qualified Code(s): K72.10 - Chronic hepatic failure without coma Problem List Initiated/Reviewed/Updated: Yes Orders Last 24hrs: Active Orders 24 hr Category Date Time Status Ambulate [RC] ASDIRECTED Care 08/12/21 17:56 Ordered Oxygen Therapy [RC] PRN Care 08/12/21 17:57 Ordered Up ad Reyna [RC] ASDIRECTED Care 08/12/21 17:56 Ordered VTE/DVT Education [RC] PER UNIT ROUTINE Care 08/12/21 17:57 Ordered Vital Signs [RC] PER UNIT ROUTINE Care 08/12/21 17:57 Ordered 2 Gram Sodium Diet [DIET] Diet 08/12/21 Dinner Ordered Acetaminophen [TylenoL] Med 08/12/21 17:58 Ordered 500 mg PO Q6H PRN Lactulose [Cephulac] Med 08/12/21 21:00 Ordered 20 gm PO BID Nicotine [Habitrol] Med 08/13/21 09:00 Ordered 21 mg TRDERM DAILY Ondansetron [Zofran ODT] Med 08/12/21 17:58 Ordered 4 mg PO Q6H PRN Resuscitation Status Routine Resus Stat 08/12/21 17:56 Ordered Assessment/Plan Comment:: Acute decompensated hepatic failure Hx of hep C without coma anasarca severe protein calorie malnutrition hypoalbuminemia - MELDNa 28 ( creatinine 0.75, tbili 9.8, INR 1.6, Na 124; conveys 27-32% 90-day mortality) - pt does not qualify for transplant as last drink of alcohol several days ago - drug use - albumin 0.9 - clinical account specialist/nutrition consult placed - No evidence of hepatic encephalopathy at this time - lactulose 20 mg p.o. twice daily to target 3 bowel movements per day - I/O, daily weights. 2g Na daily with 1.5L fluid restrict - protein supplement will need to be provided that is low sodium and contains no additional fluid given strict intake. - tylenol limit 2g for pain control - will discharge home with daughter when she arrives (likely Monday) with goal that she will survive to 90 days sober and then can be evaluated by GI for possible transplant. she is considering quality of life options going forward - again discussed hospice care - family assisting with getting her involved with alcohol and drug treatment/support CHRONIC CONDITIONS: - nicotine dependence, cigarettes, uncomplicated: nicotine replacement per protocol - THC and methamphetamine abuse: UDS positive for THC and meth Code status: Full code, will need to be continue to re-addressed prior to discharge given extremely poor prognosis. Daily discussion DVT prophylaxis: subQ lovenox Swingbed
[2021-08-12] MEDS: Ibuprofen 400 MG Tab PO PRN (20:23)
[2021-08-12] MEDS: Lactulose Soln 10 GM/15 ML 30 ML UD Cup PO SCH (20:25)
[2021-08-13] MEDS: Nicotine 21 MG/24 Hr Patch TRDERM SCH (10:34)
[2021-08-13] MEDS: Lactulose Soln 10 GM/15 ML 30 ML UD Cup PO SCH ×2 (10:35→20:55)
[2021-08-13] MEDS: Ibuprofen 400 MG Tab PO PRN ×2 (10:46→18:47)
[2021-08-13] MEDS: Acetaminophen 500 MG Tab PO PRN (20:58)
[2021-08-14] MEDS: Lactulose Soln 10 GM/15 ML 30 ML UD Cup PO SCH ×2 (09:16→20:05)
[2021-08-14] MEDS: Nicotine 21 MG/24 Hr Patch TRDERM SCH (09:17)
[2021-08-14] MEDS: Ibuprofen 400 MG Tab PO PRN ×2 (09:18→18:04)
[2021-08-15] MEDS: Ibuprofen 400 MG Tab PO PRN ×2 (05:07→19:40)
[2021-08-15] MEDS: Nicotine 21 MG/24 Hr Patch TRDERM SCH (09:09)
[2021-08-15] MEDS: Lactulose Soln 10 GM/15 ML 30 ML UD Cup PO SCH ×3 (09:10→19:55)
[2021-08-15] MEDS: Acetaminophen 500 MG Tab PO PRN (09:17)
[2021-08-16] MEDS: Acetaminophen 500 MG Tab PO PRN (00:25)
--- NOTE | 2021-08-16 06:43 | PCM.PN ---
- General Info Date of Service: 08/16/21 Admission Dx/Problem (Free Text): Alcoholic cirrhosis of liver failure admit to swing bed Subjective Update: This a.m. patient had worsening of her mental status, also had significant nosebleeds and complained of severe abdominal pain and had a melanotic stool. Repeat labs were obtained which showed a sodium of 122, WBC 12.4, hemoglobin 11, BUN of 79, creatinine of 3.85 significantly elevated from normal creatinine several days ago. Lactic acid of 7.7. Alk phos 608, ALT 202. Given patient's known acute liver failure, continued drug use and alcohol use, now with acute renal failure and likely GI bleed - patient is in the process of dying. Ondina ent's daughter arrived today. Had a prolonged discussion with the patient and her daughter about patient's liver failure, renal failure. Decision was made to move toward comfort focused cares. As needed Ativan, fentanyl was ordered, discontinue the laboratory monitoring are necessary procedures. CODE STATUS was changed to if he DNR. Multiple family members were informed including daughter at bedside. Patient's mental status continued to deteriorate throughout the morning. At this point patient will likely pass away during this hospital stay. - Patient Data Vitals - Most Recent: Last Vital Signs Temp 97.1 F 08/15/21 19:51 Pulse 93 08/15/21 19:51 Resp 28 H 08/15/21 19:51 BP 110/60 08/15/21 19:51 Pulse Ox 97 08/15/21 19:51 Weight - Most Recent: 142 lb 14.4 oz I&O - Last 24 Hours: Intake & Output 08/15/21 08/15/21 08/16/21 14:59 22:59 06:59 Intake Total 60 Balance 60 Med Orders - Current: Current Medications Acetaminophen (Acetaminophen 500 Mg Tab) 500 mg PO Q6H PRN PRN Reason: Abdominal Pain Last Admin: 08/16/21 00:25 Dose: 500 mg Documented by: Ibuprofen (Ibuprofen 400 Mg Tab) 400 mg PO Q8H PRN PRN Reason: Abdominal Pain Last Admin: 08/15/21 19:40 Dose: 400 mg Documented by: Lactulose (Lactulose Soln 10 Gm/15 Ml 30 Ml Ud Cup) 20 gm PO BID SHIREEN Last Admin: 08/15/21 19:55 Dose: 20 gm Documented by: Nicotine (Nicotine 21 Mg/24 Hr Patch) 21 mg TRDERM DAILY SHIREEN Last Admin: 08/15/21 09:09 Dose: 21 mg Documented by: Ondansetron HCl (Ondansetron 4 Mg Tab.Dis) 4 mg PO Q6H PRN PRN Reason: nausea, able to take PO - Exam General: Obtunded HEENT: Pupils Equal Neck: Supple Lungs: Clear to Auscultation, Normal Respiratory Effort Cardiovascular: Regular Rhythm, Tachycardia GI/Abdominal Exam: Distended (noted ascities ), Tender Back Exam: Normal Inspection Extremities: Pedal Edema Peripheral Pulses: 1+: Radial (L), Radial (R) Skin: Other (jaundice) Neurological: Other (confused) - Patient Data Result Diagrams: 08/16/21 09:00 08/16/21 09:00 Sepsis Event Note - Evaluation Sepsis Screening Result: No Definite Risk - Focused Exam Vital Signs: Vital Signs Temp Pulse Resp BP Pulse Ox 08/15/21 19:51 97.1 F 93 28 H 110/60 97 - Problem List & Annotations (1) Alcoholic liver disease SNOMED Code(s): 75835463 Code(s): K70.9 - ALCOHOLIC LIVER DISEASE, UNSPECIFIED Status: Acute Current Visit: Yes (2) Ascites due to alcoholic hepatitis SNOMED Code(s): 0868347885123453 Code(s): K70.11 - ALCOHOLIC HEPATITIS WITH ASCITES Status: Acute Current Visit: Yes (3) History of hepatitis C SNOMED Code(s): 35032084097984, 62332688734355 Code(s): Z86.19 - PERSONAL HISTORY OF OTHER INFECTIOUS AND PARASITIC DISEASES Status: Acute Current Visit: No (4) Liver failure SNOMED Code(s): 78198031 Code(s): K72.90 - HEPATIC FAILURE, UNSPECIFIED WITHOUT COMA Status: Acute Current Visit: Yes Qualifiers: Liver failure chronicity: chronic Hepatic coma status: without hepatic coma Qualified Code(s): K72.10 - Chronic hepatic failure without coma (5) Acute renal failure (ARF) SNOMED Code(s): 00616999 Code(s): N17.9 - ACUTE KIDNEY FAILURE, UNSPECIFIED Status: Acute Current Visit: Yes (6) GI bleed SNOMED Code(s): 18618596 Code(s): K92.2 - GASTROINTESTINAL HEMORRHAGE, UNSPECIFIED Status: Acute Current Visit: Yes - Problem List Review Problem List Initiated/Reviewed/Updated: Yes - Plan Plan:: Acute decompensated hepatic failure Hx of hep C without coma anasarca severe protein calorie malnutrition Hypoalbuminemia GI bleed ARF - This a.m. 08/16/21 patient had worsening of her mental status, also had significant nosebleeds and complained of severe abdominal pain and had a melanotic stool. Repeat labs were obtained which showed a sodium of 122, WBC 12.4, hemoglobin 11, BUN of 79, creatinine of 3.85 significantly elevated from normal creatinine several days ago. Lactic acid of 7.7. Alk phos 608, ALT 202. Given patient's known acute liver failure, continued drug use and alcohol use, now with acute renal failure and likely GI bleed - patient is in the process of dying. Patient's daughter arrived today. Had a prolonged discussion with the patient and her daughter about patient's liver failure, renal failure. Decision was made to move toward comfort focused cares. As needed Ativan, fentanyl was ordered, discontinue the laboratory monitoring are necessary procedures. CODE STATUS was changed to if he DNR. Multiple family members were informed including daughter at bedside. Patient's mental status continued to deteriorate throughout the morning. At this point patient will likely pass away during this hospital stay.
--- NOTE | 2021-08-16 07:10 | PCM.DCSUM1 ---
Discharge Summary - Hospital Course Free Text/Narrative:: Patient is a 61-year-old female with a history of alcoholic cirrhosis, history of hepatitis C, chronic alcohol use, IV drug use who initially presented to the emergency department due to worsening abdominal distention and jaundice. Patient was found to have a meld NA score of 28. Patient was admitted for further evaluation. Patient initially was placed on a transfer list to outside facility for GI consultation however prolonged discussions with patient indicated that she did not want transfer at this time discussions were had about hospice care. Patient stated that she did not want to transfer and did not want further consultation but at the same time was not excepting of hospice at the current time. Multiple prolonged discussions were had about CODE STATUS and possible options for treatment. Patient's options are limited for treatment given her continued alcohol and drug use. Patient declined transfer and further work-up. Discussion was had with family and at the time of discharge from inpatient status patient stated that her daughter is coming to pick her up from the [facility] and she will be traveling to the [facility] to live with her. Discussed that patient to establish with a primary care provider and pastry supervisor/business performance specialist wherever she locates to. Lactulose was added to her medication regiment in order to prevent hepatic encephalopathy. No acute concerns for abdominal infection, hepatic cephalopathy, varices upon discharge. Given patient's stability but continued need for PT/OT and social staff worker patient was discharged and admitted to swing bed. On the morning of 08/16/21 patient had worsening of her mental status, also had significant nosebleeds and complained of severe abdominal pain and had a melanotic stool. Repeat labs were obtained which showed a sodium of 122, WBC 12.4, hemoglobin 11, BUN of 79, creatinine of 3.85 significantly elevated from normal creatinine several days ago. Lactic acid of 7.7. Alk phos 608, ALT 202. Given patient's known acute liver failure, continued drug use and alcohol use, now with acute renal failure and likely GI bleed - patient is in the process of dying. Patient's daughter arrived today. Had a prolonged discussion with the patient and her daughter about patient's liver failure, renal failure. Decision was made to move toward comfort focused cares. As needed Ativan, fentanyl was ordered, discontinue the laboratory monitoring are necessary procedures. CODE STATUS was changed to if he DNR. Multiple family members were informed including daughter at bedside. Patient's mental status continued to deteriorate throughout the morning. At this point patient will likely pass away during this hospital stay. Soon after comfort cares were initiated patient had decreased responsiveness and decreased respirations. Family was called to bedside. Patient at 1655. Cause of is liver failure. Contributing factors included hepatorenal/acute renal failure, gastrointestinal bleed. - Discharge Data Discharge Date: 08/16/21 Discharge Disposition: 20 Preliminary Cause of *Q: Multi System Organ Failure Condition: - Referral to Home Health Primary Care Physician: PCP None - Discharge Diagnosis/Problem(s) (1) Alcoholic liver disease SNOMED Code(s): 69965133 ICD Code: K70.9 - ALCOHOLIC LIVER DISEASE, UNSPECIFIED Status: Acute Current Visit: Yes (2) Ascites due to alcoholic hepatitis SNOMED Code(s): 8002749102637474 ICD Code: K70.11 - ALCOHOLIC HEPATITIS WITH ASCITES Status: Acute Current Visit: Yes (3) History of hepatitis C SNOMED Code(s): 71718582914485, 77497029965024 ICD Code: Z86.19 - PERSONAL HISTORY OF OTHER INFECTIOUS AND PARASITIC DISEASES Status: Acute Current Visit: No (4) Liver failure SNOMED Code(s): 92627305 ICD Code: K72.90 - HEPATIC FAILURE, UNSPECIFIED WITHOUT COMA Status: Acute Current Visit: Yes Qualifiers: Liver failure chronicity: chronic Hepatic coma status: without hepatic coma Qualified Code(s): K72.10 - Chronic hepatic failure without coma - Discharge Plan *PRESCRIPTION DRUG MONITORING PROGRAM REVIEWED*: Not Applicable *COPY OF PRESCRIPTION DRUG MONITORING REPORT IN PATIENT LISA: Not Applicable Home Medications: Home Meds Acetaminophen [Tylenol] 500 mg PO Q6H PRN tablet 08/12/21 [Rx] Lactulose [Cephulac] 20 gm PO BID cup 08/12/21 [Rx] Nicotine [Habitrol] 21 mg TRDERM DAILY patch 08/12/21 [Rx] Ondansetron [Zofran ODT] 4 mg PO Q6H PRN tab.dis 08/12/21 [Rx] - Discharge Summary/Plan Comment DC Time >30 min.: Yes Total # of Minutes for Discharge Time: 30 minutes - Patient Data Vitals - Most Recent: Last Vital Signs Temp 97.1 F 08/15/21 19:51 Pulse 93 08/15/21 19:51 Resp 28 H 08/15/21 19:51 BP 110/60 08/15/21 19:51 Pulse Ox 97 08/15/21 19:51 Weight - Most Recent: 142 lb 14.4 oz I&O - Last 24 hours: Intake & Output 08/15/21 08/16/21 08/16/21 22:59 06:59 14:59 Intake Total 60 Balance 60 Med Orders - Current: Current Medications Acetaminophen (Acetaminophen 500 Mg Tab) 500 mg PO Q6H PRN PRN Reason: Abdominal Pain Last Admin: 08/16/21 00:25 Dose: 500 mg Documented by: Ibuprofen (Ibuprofen 400 Mg Tab) 400 mg PO Q8H PRN PRN Reason: Abdominal Pain Last Admin: 08/15/21 19:40 Dose: 400 mg Documented by: Lactulose (Lactulose Soln 10 Gm/15 Ml 30 Ml Ud Cup) 20 gm PO BID [facility] Last Admin: 08/15/21 19:55 Dose: 20 gm Documented by: Nicotine (Nicotine 21 Mg/24 Hr Patch) 21 mg TRDERM DAILY [facility] Last Admin: 08/15/21 09:09 Dose: 21 mg Documented by: Ondansetron HCl (Ondansetron 4 Mg Tab.Dis) 4 mg PO Q6H PRN PRN Reason: nausea, able to take PO
[2021-08-16 09:25] LABS: ANION GAP 24.8 mEq/L (7-13)
[2021-08-16] MEDS ORDERED: LORazepam 2 MG/ML SDV IVPUSH PRN ×2 (10:00→12:59)
[2021-08-16] MEDS: fentaNYL 100 MCG/2 ML SDV IVPUSH PRN ×3 (11:54→15:10)
[2021-08-16] MEDS: Nicotine 21 MG/24 Hr Patch TRDERM SCH (11:55)
[2021-08-16] MEDS: Lactulose Soln 10 GM/15 ML 30 ML UD Cup PO SCH (11:55)
[2021-08-16] MEDS ORDERED: fentaNYL Citrate/PF 1,500 MCG/30 ML PCA Vial IV SCH (13:00)
[2021-08-16] MEDS ORDERED: fentaNYL Citrate/PF 1,500 MCG/30 ML PCA Vial ONE (13:12)
[2021-08-16] MEDS ORDERED: Atropine 1% Ophth Soln 5 ML BOTTLE SL PRN (15:51)
== END 2021-08-16 18:36 | disposition expired | DRG 441 ==
LOC: DL.MS 18:00
PROVIDERS: ADMIT Internal Medicine; ATTEND Internal Medicine
DX: K72.00 Acute and subacute hepatic failure without coma (principal); K76.7 Hepatorenal syndrome; E43 Unspecified severe protein-calorie malnutrition; N17.9 Acute kidney failure, unspecified; K92.2 Gastrointestinal hemorrhage, unspecified; Z68.1 Body mass index [BMI] 19.9 or less, adult; K70.31 Alcoholic cirrhosis of liver with ascites; Z51.5 Encounter for palliative care; K70.11 Alcoholic hepatitis with ascites; K72.10 Chronic hepatic failure without coma; R04.0 Epistaxis; Z66 Do not resuscitate; G25.81 Restless legs syndrome; F32.A Depression, unspecified; E88.09 Other disorders of plasma-protein metabolism, not elsewhere classified; F17.210 Nicotine dependence, cigarettes, uncomplicated; F15.10 Other stimulant abuse, uncomplicated; F12.10 Cannabis abuse, uncomplicated; Z79.899 Other long term (current) drug therapy; Z87.81 Personal history of (healed) traumatic fracture; Z86.19 Personal history of other infectious and parasitic diseases; Z71.6 Tobacco abuse counseling
CPT/HCPCS: 36415; 80053; 83605; 85025; 85610; A9270-GY; J2060; J3010